=== PATIENT | female | born 1945 | race Two or more races ===

== ENCOUNTER 2022-09-29 15:42 | Inpatient (IN) | payer MEDICAID, SELFPAY ==
--- NOTE | ~2022-09-29 | CT_ITS ---
EXAMINATION: CT HEAD WITHOUT CONTRAST CLINICAL INFORMATION: Change in mental status. COMPARISON: No relevant prior imaging. TECHNIQUE: Contiguous axial imaging was performed from the skull base to vertex without intravenous administration of contrast. This CT examination was performed using dose optimization techniques as appropriate, variously including the following: *Automated exposure control *Adjustment of mA and/or kV according to patient size (this includes techniques or standardized protocols for targeted exams where dose is matched to indication/reason for exam; i.e. extremities or head) *Use of iterative reconstruction technique DLP: 730 mGy-cm FINDINGS: There is no acute intracranial hemorrhage or abnormal extra-axial collection. No intracranial mass effect or midline shift. Lateral and third ventricles are normal. No hydrocephalus. Scattered ill-defined foci of hypoattenuation are visualized within the periventricular white matter that most likely represent a chronic manifestation of small vessel ischemia. Ly-white matter differentiation is otherwise preserved and there is no evidence of acute territorial infarct. The calvarium and skull base are intact. Mastoid air cells and middle ear cavities are well aerated. Moderate paranasal sinus disease is partially included within the bmqlg-sb-pgoy of this examination. CT/CT head/brain wo IV con IMPRESSION: There are scattered chronic small vessel ischemic changes within the periventricular white matter. Otherwise unremarkable examination. No evidence of acute territorial infarct or hemorrhage.
--- NOTE | ~2022-09-29 | XR_ITS ---
EXAMINATION: XR CHEST CLINICAL INFORMATION: Shortness of breath COMPARISON: None available. TECHNIQUE: Frontal view of the chest was obtained. FINDINGS: The cardiac mediastinal silhouette is normal. There are bibasilar atelectasis, left greater than right. No pleural effusions or pneumothoraces. Normal pulmonary vascularity. XR/XR chest 1V IMPRESSION: Bibasilar atelectasis.
[2022-09-29 16:10] VITALS: BP 154/83; PULSE 75; RESP 18; TEMP 36.4; O2SAT 98
[2022-09-29 16:25] VITALS: BMI 21.8
[2022-09-29 16:35] LABS: Glucose, Whole Blood 124 mg/dL (60-115)
[2022-09-29 18:00] VITALS: BP 144/69; PULSE 74; RESP 18; TEMP 36.3; O2SAT 98
--- NOTE | 2022-09-29 18:45 | PC.ADMIT ---
Pt. arrived on unit from [facility] at 1555 via stretcher accompanied by 3 rate and cost analyst. Pt. recently brought by son from [facility] to live with his family in [place]. Pt. had made SI statements to son, resulting in her being brought to [facility]. In person rn neonatal icu utilized for admission process. Pt. admits she made statements that she wanted to to her son and waved a knife at herself, but no longer feels that way. She is A & O X 4, but admits her memory is severely impaired. She reports she has lost an unspecified amount of weight due to lack of appetite. Pt. oriented to unit and what to expect during stay. Signed KATERINE for son, and he will be called when rn neonatal icu is available. Pt. walks independently but uses furniture for balance. She reports problems with vertigo when she turns her head. Pt. given red fall risk wrist band, red non skid socks, and will be on 5 minute checks and have a bed alarm used. She has been provided a walker.
--- NOTE | 2022-09-29 19:52 | HO.PM.IMCN ---
History of Present Illness Data of Consult Service Date: 09/29/22 Requesting physician: Jazmyn Truong Primary Care Provider: Catherine Vega MD HPI Reason for consult: medical H&P 77-year-old female with history of hypertension, szr-[id number]-vylcpvyof type 2 diabetes, mixed bipolar disorder, and vertigo admitted to psychiatry from [facility] with consult placed to hospitalist service for medical H&P. Patient is Setswana-speaking only and was seen with the assistance of translator interpreter. She states that she has been quite depressed for several months with decreased appetite and has lost about 20 lb. She has also been experiencing positional vertigo for the last 2-3 weeks. She states when she changes positions or moves her head, she experiences room spinning dizziness and also has gait imbalance and has been ambulating with a walker for stability. She denies any associated nausea, vomiting, visual changes, hearing loss, tinnitus. She also reports chronic constipation last bowel movement was 5 days ago. No abdominal pain, melena, hematochezia. Review of Systems Review of Systems: General: No fevers, malaise, +weight loss HEENT: No blurred vision, diplopia. No sore throat, nasal congestion, rhinorrhea, sinus pain, ear pain Cardiovascular: No chest pain, palpitations, or leg edema Respiratory: No shortness of breath, wheezing, cough GI: No abdominal pain, nausea, vomiting, diarrhea, constipation, melena, hematochezia : No dysuria, hematuria, increased urinary frequency, decreased urinary output MSK: No myalgia, back pain Neuro: No headaches, weakness, paresthesias. +vertigo, +gait imbalance Psych: +depression, +decreased appetite Skin: No rashes or lesions [facility] Medical History (Updated 09/29/22 @ 19:58 by EARL Jiménez) Bipolar disorder Hypertension Non-insulin dependent type 2 diabetes mellitus Social History Household Members: Spouse, Family and Children Household Members Other:: , son, daughter in law, and grandson Housing: House Do you presently have visiting nurse or other home services: No Patient Tobacco Use Status: Never used Tobacco Use of substances other than those prescribed or required for medical reasons: No Currently Displaying Signs/Symptoms of Drug Intoxication Withdrawal: No Any prior treatment program specific to substance use: No Have you been hit, kicked, punched, or otherwise hurt by someone within the past year? If so, by whom?: No Do you feel safe in your current relationship?: Yes Is there a partner from a previous relationship who is making you feel unsafe now?: No Are you made to feel afraid or neglected: Yes ( Today afraid because I didn't know where I was going. ) Spiritual Healthcare Practices: No Buddhist Healthcare Practices: No Cultural Healthcare Practices: No Advance Directives: No Advance Directives Information Provided: No Do you have thoughts of harming others: None Do you have a plan to hurt others: No Plan Recently lost weight without trying: Yes How much weight loss: Unsure Eating poorly because of decreased appetite: Yes Nutrition screen score: 5 Nutrition Risks: Anorexia Patient : No : No Poor oral hygiene: No Meds Allergies Allergy/AdvReac Type Severity Reaction Status Date / Time No Known Allergies Allergy Verified 09/29/22 16:27 Active Medications: Current Medications Acetaminophen (Acetaminophen 325 Mg Tablet) 650 mg PO Q6H PRN PRN Reason: Headache/Pain Mild Scale (1-3) Al Hydroxide/Mg Hydroxide (Magnesium Hydrox/Alum Hydrox 30 Ml Oral.Susp) 30 ml PO Q6H PRN PRN Reason: Heartburn/Nausea Clonazepam (Clonazepam 0.5 Mg Tablet) 0.5 mg PO TID [facility] Clonidine HCl (Clonidine Hcl 0.1 Mg Tablet) 0.1 mg PO BID [facility]; Protocol Fluticasone Propionate (Fluticasone Propionate 100 Mcg Blst.W.Dev) 2 puff INHALE DAILY [facility] Lamotrigine (Lamotrigine 100 Mg Tablet) 100 mg PO BID [facility] Lisinopril (Lisinopril 20 Mg Tablet) 20 mg PO DAILY [facility]; Protocol Magnesium Hydroxide (Milk Of Magnesia 30 Ml Oral.Susp) 30 ml PO DAILY PRN PRN Reason: Constipation Meclizine HCl (Meclizine Hcl 12.5 Mg Tablet) 12.5 mg PO TID PRN PRN Reason: vertigo Multivitamins/Vitamin C (Multivitamin Tablet) 1 tab PO DAILY [facility] Olanzapine (Olanzapine 2.5 Mg Tablet) 2.5 mg PO BID PRN PRN Reason: agitation Risperidone (Risperidone 1 Mg Tablet) 1 mg PO TID [facility] Sertraline HCl (Sertraline Hcl 100 Mg Tablet) 100 mg PO DAILY [facility] Trazodone HCl (Trazodone Hcl 25 Mg Halftab) 25 mg PO BID PRN PRN Reason: sleep, agitation Physical Exam Vital Signs and Narrative: Vital Signs: Last Vital Signs Temp 97.5 F 09/29/22 16:10 Pulse 75 09/29/22 16:10 Resp 18 09/29/22 16:10 BP 154/83 H 09/29/22 16:10 Pulse Ox 98 09/29/22 16:10 O2 Del Method Room Air 09/29/22 16:10 BMI result Body Mass Index 21.8 Constitutional - Awake and Alert, No apparent distress Eyes - PERRLA, EOMI Cardiovascular - S1S2, RRR, No edema Respiratory - Normal lung expansion, Normal respiratory effort, No respiratory distress, CTA bilaterally Gastrointestinal - NT / ND; +BS; No rebound or guarding Extremities - no calf tenderness bilaterally, no swelling Musculoskeletal - Normal inspection, normal ROM Skin - Warm/Dry Neurological - Alert & oriented x3, horizontal nystagmus, otherwise CN II-XII in tact, 5/5 strength BUE and BLE, sensation in tact Results Labs Labs: Laboratory Results - last 24 hr 09/29/22 16:31 POC Glucose 124 H Assessment and Plan (1) Routine medical exam: Status: Acute (2) Vertigo: Status: Acute Plan 77-year-old female with history of hypertension, [id number]-hjqzvqecn type 2 diabetes, mixed bipolar disorder, and vertigo admitted to psychiatry from [facility] with consult placed to hospitalist service for medical H&P. #Bipolar disorder -plan per psychiatry #Vertigo -horizontal nystagmus noted on exam. Likely BPPV, but cannot exclude Risperdal or clonidine as contributing factors -Meclizine PRN -Consider PT eval given gait imbalance # uva-wlhwqvl-gdpfkwhfu type 2 diabetes -no hyperglycemia, recommend checking hemoglobin A1c -POC glucose -recommend diabetic diet -Humalog on sliding scale p.r.n. for hyperglycemia # hypertension -continue home meds -monitor BP Thank you for allowing me to participate in this consult. Signing off at this time. Please do not hesitate to call for further questions. Time Spent With Patient Time: Total time managing care of this patient today ____ minutes.
[2022-09-29] MEDS: Milk of Magnesia 30 ML ORAL.SUSP PO (21:27)
[2022-09-29] MEDS: traZODone HCL 25 MG HALFTAB PO (21:27)
[2022-09-29] MEDS: clonazePAM 0.5 MG TABLET PO (21:27)
[2022-09-29] MEDS: risperiDONE 1 MG TABLET PO (21:27)
[2022-09-29] MEDS: lamoTRIgine 100 MG TABLET PO (21:27)
[2022-09-30 08:00] VITALS: BP 166/94; PULSE 98; RESP 18; TEMP 36.5; O2SAT 97
[2022-09-30 08:00] LABS: Glucose, Whole Blood 136 mg/dL (60-115)
[2022-09-30 08:24] LABS: Estimated Average Glucose 128 mg/dL; Hemoglobin A1C 148.6715 umol/L; Hemoglobin A1c % 6.1 %
[2022-09-30 08:37] LABS: Cholesterol 300 mg/dL; HDL Cholesterol 67 mg/dL; LDL Cholesterol Calculated 213 mg/dl; Magnesium 2.4 mg/dL (1.6-2.6); Triglycerides 102 mg/dL
[2022-09-30] MEDS: lamoTRIgine 100 MG TABLET PO ×2 (08:42→20:29)
[2022-09-30] MEDS: cloNIDine HCL 0.1 MG TABLET PO ×2 (08:43→20:29)
[2022-09-30] MEDS: risperiDONE 1 MG TABLET PO ×3 (08:43→20:29)
[2022-09-30] MEDS: clonazePAM 0.5 MG TABLET PO ×3 (08:43→20:29)
[2022-09-30] MEDS: Multivitamin TABLET 1 TAB PO (08:44)
[2022-09-30] MEDS: Sertraline HCL 100 MG TABLET PO (08:44)
[2022-09-30] MEDS: lisinopriL 20 MG TABLET PO (08:44)
[2022-09-30 09:04] LABS: Folate 15.2 ng/mL (> or = 4.0); Free T4 (Free Thyroxine) 1.23 ng/dL (0.71-1.85); Thyroid Stimulating Hormone 1.53 uIU/mL (0.32-4.0); Vitamin B12 752 pg/mL (200-900)
[2022-09-30] MEDS: Fluticasone Propionate 100 MCG BLST.W.DEV 2 PUFF INHALE (10:10)
--- NOTE | 2022-09-30 11:34 | MHC.CLN ---
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 AND RECENTLY MOVED HERE HT 62 WT 119# IBW 110#+/-10% PT IS 108% IBW INDICATES ADEQUATE WT FOR HT; BMI 21 WNL LABS: A1C 6.1% (09/30/22) DIET RX: 2200DM-APPROPRIATE IF PT WITH POOR PO INTAKE X 3 DAYS; CAN GIVE ENSURE SUPPLEMENT TO INCREASE KCALS MONITOR PO INTAKE CLOSELY WEEKLY WEIGHTS
--- NOTE | 2022-09-30 15:55 | HO.PSYADMNOT ---
HPI Date of Service: 09/30/22 Chief Complaint: MDD recurrent, severe w/o psychotic behavior Sources of Information: patient interviewed, chart reviewed and crisis/core team assessment reviewed HPI Subjective Notes: Morillo Warning and Conditional Voluntary Narrative: The patient is a 77-year-old Pinedo certain female, , mother of an adult son, living with her and sons family in [facility], recently relocated from [facility] a few months ago. 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 He was rushed to the emergency room complaining of suicidal ideation with a plan but no intent. According to the chart the patient carries a diagnosis of bipolar disorder type 2 most recent episode depressed. According to the crisis assessment, the patient was rushed to the emergency room after a verbal altercation and she verbalized suicidal ideation with a plan to hurt herself with medications or running into traffic. He was assessed by crisis and since she reported depressed mood, anhedonia, lack of energy, feelings of hopelessness, feelings of worthlessness, poor sleep and poor appetite with suicidal ideation she was transferred to this facility for psychiatric stabilization. According to the crisis report she had a previous admission into the hospital for depression. On interview, the patient had very limited Israeli and she was interviewed in Cymro. She stated that she had been having depressive episodes since her early 50s, never admitted into the hospital in [facility] and she was recently relocated into the [facility] by her son. Since she has come, she reports exacerbation of depressed mood, anhedonia, lack of energy, feelings of hopelessness but she adamantly denies current suicidal ideation. She wants to go back to her home country. She stated that her son is working as an [employer]fd[employer] solution architect here and he is successful and busy. Also, she noticed that she had a decline on her memory, she cannot remember for the well long-term and short-term. She was able to contract for safety in the facility, she denies psychotic symptoms or prior episodes of farrah but according to the chart she was diagnosed with bipolar disorder. Past Psychiatric History: Her 1st psychiatric contact was at the age of 55 episodes of depression, she had been treated with psychotherapy medication management and the so Nusrat, never admitted over there were no episodes of suicidality, she had been admitted here [place] the [place]. Currently, the patient cannot remember what kind of medication she is taking. Medical Evaluation Reviewed: Yes [facility] Medical History Bipolar disorder Hypertension Non-insulin dependent type 2 diabetes mellitus Family History: Her mother had history of dementia. Social History: The patient was born and raised it invaded swell up, she is mother of 1 adult son. 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 She has good social support Substance History: Denies Trauma History: Denies Diagnostics Vital Signs (24Hr): Vital Signs - 24 hr 09/29/22 16:10 09/29/22 18:00 09/30/22 08:00 Temperature 97.5 F 97.4 F 97.7 F Pulse Rate 75 74 98 Respiratory Rate 18 18 18 Blood Pressure 154/83 H 144/69 H 166/94 H Pulse Oximetry 98 98 97 Oxygen Delivery Method Room Air Room Air BMI result Body Mass Index 21.8 Labs Labs: Laboratory Results - last 48 hr 09/29/22 09/30/22 09/30/22 16:31 07:43 07:54 POC Glucose 124 H 136 H Estimat Average Glucose 128 Hemoglobin A1c % 6.1 Magnesium Triglycerides Cholesterol LDL Cholesterol, Calc HDL Cholesterol Vitamin B12 Folate TSH Free T4 09/30/22 07:54 POC Glucose Estimat Average Glucose Hemoglobin A1c % Magnesium 2.4 Triglycerides 102 Cholesterol 300 LDL Cholesterol, Calc 213 HDL Cholesterol 67 Vitamin B12 752 Folate 15.2 TSH 1.53 Free T4 1.23 Meds/Allergies Meds Home Medications Medication Instructions Recorded Confirmed Type clonazepam 0.5 mg tablet 0.5 mg PO TID 09/30/22 09/30/22 History clonidine HCl 0.1 mg tablet 0.1 mg PO BID 09/30/22 09/30/22 History diphenhydramine HCl 50 mg capsule 50 mg PO BEDTIME PRN insomnia 09/30/22 09/30/22 History (Banophen) ferrous gluconate 324 mg (38 mg 324 mg PO DAILY 09/30/22 09/30/22 History iron) tablet lamotrigine 100 mg tablet 100 mg PO BID 09/30/22 09/30/22 History lamotrigine 100 mg tablet 100 mg PO BID 09/30/22 09/30/22 History multivitamin-iron 9 mg-folic acid 1 tab PO DAILY 09/30/22 09/30/22 History 400 mcg-calcium and minerals tablet (Therapeutic-M) risperidone 1 mg tablet 1 mg PO TID 09/30/22 09/30/22 History sertraline 50 mg tablet 50 mg PO DAILY 09/30/22 09/30/22 History Allergies Allergies Allergy/AdvReac Type Severity Reaction Status Date / Time No Known Allergies Allergy Verified 09/29/22 16:27 Mental Status Exam Mental Status Exam Patient Appearance: Appropriate Patient Orientation: Person and Situation Level of Consciousness: Awake and Appropriate Patient Behavior: Guarded and Passive Mood Description: Calm Affect Description: Constricted Patient Cognition Impaired: Yes Ability to Follow Directions: Good Speech Pattern: Clear Hallucinations: None Delusions: Not Present Thought Process: Distracted and Linear Thought Content: positive for [place] and positive for Circumstantial Judgement: Fair Assessment & Plan Assessment & Plan (1) Bipolar disorder: Status: Acute Code(s): F31.9 - Bipolar disorder, unspecified (2) Anorexia: Status: Acute Code(s): R63.0 - Anorexia (3) Vertigo: Status: Acute Code(s): R42 - Dizziness and giddiness (4) Routine medical exam: Status: Acute Code(s): Z00.00 - Encounter for general adult medical examination without abnormal findings Plan The patient is an elderly female, mostly Cymro-speaking with a past history of bipolar disorder who was admitted for exacerbation of depression with neurovegetative symptoms and suicidal ideation. The patient was recently relocated from [place] to the [facility] and she wants to go back home. Plan 1. Gather collateral information. We have permission to contact her son and gather more information. 2. Continue with medical treatment and suggestions for the hospitalist for treatment of diabetes and high blood pressure. 3. Continue with blood work and other medical treatment. 4. CT scan without contrast head. 5. Continue antidepressants. Patient educated on: diagnosis and therapeutic strategies Informed Consent: further education needed Reason for continued inpatient stay Substantial Risk for: harm to self, inability to function, rapid decompensation and med/psych decompensation Statement Statement: I have reviewed the history and physical and performed a pertinent examination on my patient. No changes have occurred unless specified. If the History and Physical was not performed prior to admission, the Hospitalist's service will be consulted for completing the admission physical. Time Spent With Patient Time: Total time managing care of this patient today ____ minutes.
[2022-09-30 16:35] LABS: Glucose, Whole Blood 104 mg/dL (60-115)
[2022-09-30 20:05] VITALS: BP 140/73; PULSE 92
[2022-09-30] MEDS: Sennosides 8.6 MG TABLET PO (20:29)
[2022-10-01 06:00] VITALS: BP 122/72; PULSE 15; RESP 15; TEMP 36.6; O2SAT 97
[2022-10-01 07:38] LABS: Glucose, Whole Blood 140 mg/dL (60-115)
[2022-10-01] MEDS: cloNIDine HCL 0.1 MG TABLET PO ×2 (09:28→20:25)
[2022-10-01] MEDS: Multivitamin TABLET 1 TAB PO (09:28)
[2022-10-01] MEDS: risperiDONE 1 MG TABLET PO ×3 (09:28→20:26)
[2022-10-01] MEDS: lisinopriL 20 MG TABLET PO (09:28)
[2022-10-01] MEDS: clonazePAM 0.5 MG TABLET PO ×3 (09:28→20:25)
[2022-10-01] MEDS: Sertraline HCL 100 MG TABLET PO (09:28)
[2022-10-01] MEDS: lamoTRIgine 100 MG TABLET PO ×2 (09:28→20:26)
[2022-10-01] MEDS: Fluticasone Propionate 100 MCG BLST.W.DEV 2 PUFF INHALE (09:35)
--- NOTE | 2022-10-01 11:50 | P.PNPSI_ITS ---
Subjective Subjective Date of Service: 10/01/22 Reason For Visit: MDD recurrent, severe w/o psychotic behavior Subjective Notes: Conditional Voluntary Interim History: The nursing staff reported the patient slept poorly last night and her appetite has been poor. She had been seen socializing with other peers. The certified social workers in health care tried to contact yesterday her son and he called back stating that he has time for a phone call at 02:30. We will try to call him back at that time today. The occupational therapist reported they were going to do an Juan Jose test. I will try to do a [place] in [place] today. On interview the patient reported diarrhea and poor appetite, she also reported feeling depressed, home-sick she wants to go back to [facility]. Mental Status Exam Mental Status Exam Patient Appearance: Well Grooomed and Appropriate Patient Orientation: Person and Situation Level of Consciousness: Awake and Appropriate Patient Behavior: Cooperative and Passive Mood Description: Withdrawn and Depressed Affect Description: Constricted Patient Cognition Impaired: Yes Ability to Follow Directions: Excellent Speech Pattern: Clear Memory Description: Intact Hallucinations: None Delusions: Not Present Thought Process: Distracted and Linear Thought Content: positive for [place] and positive for Circumstantial Judgement: Fair Diagnostics Vital Signs (24Hr): Vital Signs - 24 hr 09/30/22 20:05 10/01/22 06:00 Temperature 97.8 F Pulse Rate 92 15 L Respiratory Rate 15 Blood Pressure 140/73 H 122/72 Pulse Oximetry 97 Oxygen Delivery Method Room Air BMI result Body Mass Index 21.8 Labs Labs: Laboratory Results - last 48 hr 09/29/22 09/30/22 09/30/22 16:31 07:43 07:54 POC Glucose 124 H 136 H Estimat Average Glucose 128 Hemoglobin A1c % 6.1 Magnesium Triglycerides Cholesterol LDL Cholesterol, Calc HDL Cholesterol Vitamin B12 Folate TSH Free T4 09/30/22 09/30/22 10/01/22 07:54 16:30 07:34 POC Glucose 104 140 H Estimat Average Glucose Hemoglobin A1c % Magnesium 2.4 Triglycerides 102 Cholesterol 300 LDL Cholesterol, Calc 213 HDL Cholesterol 67 Vitamin B12 752 Folate 15.2 TSH 1.53 Free T4 1.23 Medications Medications Current Medications Acetaminophen (Acetaminophen 325 Mg Tablet) 650 mg PO Q6H PRN PRN Reason: Headache/Pain Mild Scale (1-3) Al Hydroxide/Mg Hydroxide (Magnesium Hydrox/Alum Hydrox 30 Ml Oral.Susp) 30 ml PO Q6H PRN PRN Reason: Heartburn/Nausea Clonazepam (Clonazepam 0.5 Mg Tablet) 0.5 mg PO TID [facility] Last Admin: 10/01/22 09:28 Dose: 0.5 mg Clonidine HCl (Clonidine Hcl 0.1 Mg Tablet) 0.1 mg PO BID [facility]; Protocol Last Admin: 10/01/22 09:28 Dose: 0.1 mg Fluticasone Propionate (Fluticasone Propionate 100 Mcg Blst.W.Dev) 2 puff INHALE DAILY [facility] Last Admin: 10/01/22 09:35 Dose: 2 puff Lamotrigine (Lamotrigine 100 Mg Tablet) 100 mg PO BID [facility] Last Admin: 10/01/22 09:28 Dose: 100 mg Lisinopril (Lisinopril 20 Mg Tablet) 20 mg PO DAILY [facility]; Protocol Last Admin: 10/01/22 09:28 Dose: 20 mg Magnesium Hydroxide (Milk Of Magnesia 30 Ml Oral.Susp) 30 ml PO DAILY PRN PRN Reason: Constipation Last Admin: 09/29/22 21:27 Dose: 30 ml Meclizine HCl (Meclizine Hcl 12.5 Mg Tablet) 12.5 mg PO TID PRN PRN Reason: vertigo Mirtazapine (Mirtazapine 7.5 Mg Tablet) 7.5 mg PO BEDTIME [facility] Multivitamins/Vitamin C (Multivitamin Tablet) 1 tab PO DAILY [facility] Last Admin: 10/01/22 09:28 Dose: 1 tab Olanzapine (Olanzapine 2.5 Mg Tablet) 2.5 mg PO BID PRN PRN Reason: agitation Risperidone (Risperidone 1 Mg Tablet) 1 mg PO TID [facility] Last Admin: 10/01/22 09:28 Dose: 1 mg Senna (Sennosides 8.6 Mg Tablet) 8.6 mg PO BEDTIME [facility] Last Admin: 09/30/22 20:29 Dose: 8.6 mg Sertraline HCl (Sertraline Hcl 100 Mg Tablet) 100 mg PO DAILY [facility] Last Admin: 10/01/22 09:28 Dose: 100 mg Trazodone HCl (Trazodone Hcl 25 Mg Halftab) 25 mg PO BID PRN PRN Reason: sleep, agitation Last Admin: 09/29/22 21:27 Dose: 25 mg Allergies Allergies Allergy/AdvReac Type Severity Reaction Status Date / Time No Known Allergies Allergy Verified 09/29/22 16:27 Assessment & Plan Assessment & Plan (1) Bipolar disorder: Status: Acute Code(s): F31.9 - Bipolar disorder, unspecified (2) Anorexia: Status: Acute Code(s): R63.0 - Anorexia (3) Vertigo: Status: Acute Code(s): R42 - Dizziness and giddiness (4) Routine medical exam: Status: Acute Code(s): Z00.00 - Encounter for general adult medical examination without abnormal findings Plan The patient is an elderly female, mostly [place] Islander-speaking with a past history of bipolar disorder who was admitted for exacerbation of depression with neurovegetative symptoms and suicidal ideation. The patient was recently relocated from [place] to the [facility] and she wants to go back home. Plan 1. Gather collateral information. We have permission to contact her son and gather more information. 2. Continue with medical treatment and suggestions for the hospitalist for treatment of diabetes and high blood pressure. 3. Continue with blood work and other medical treatment. 4. CT scan without contrast head. 5. Continue antidepressants. Reason for contiued inpatient stay Substantial Risk for: inability to function, rapid decompensation and med/psych decompensation Time Spent With Patient Time: Total time managing care of this patient today __20__ minutes.
[2022-10-01] MEDS: Loperamide HCl 2 MG CAPSULE 4 MG PO (13:08)
--- NOTE | 2022-10-01 13:15 | PC.NURSE ---
Patient complained of diarrhea which has been continuous throughout the day, Immodium was ordered and given. Pt complained of left flank pain, will continue to monitor.
[2022-10-01 18:00] VITALS: BP 137/70; PULSE 90; RESP 16; TEMP 36.6; O2SAT 96
[2022-10-01] MEDS: Sennosides 8.6 MG TABLET PO (20:26)
[2022-10-02 06:00] VITALS: BP 134/72; PULSE 77; RESP 18; TEMP 36.1; O2SAT 96
[2022-10-02 07:00] VITALS: BMI 21.7
--- NOTE | 2022-10-02 08:27 | HO.PSYCHPN ---
Subjective Subjective Date of Service: 10/02/22 Reason For Visit: MDD recurrent, severe w/o psychotic behavior Subjective Notes: Conditional Voluntary Interim History: The nursing staff reported the patient had been mostly isolated, fully compliant with treatment but she refused her Remeron last night since she is having diarrhea.. The staff has noticed that the patient's feels safe in the facility on she denies suicidal ideation at this moment but still she is very dysphoric. On interview the patient remains depressed, she reported oversedation with Remeron. We discussed options and she agreed to try Elavil at . The social services reported we tried to contact her son but we could not. We will try again today Mental Status Exam Mental Status Exam Patient Appearance: Well Grooomed and Appropriate Patient Orientation: Person and Situation Level of Consciousness: Awake and Appropriate Patient Behavior: Guarded and Passive Mood Description: Withdrawn and Depressed Affect Description: Constricted Patient Cognition Impaired: Yes Ability to Follow Directions: Good Speech Pattern: Clear Hallucinations: None Delusions: Not Present Thought Process: Distracted and Linear Thought Content: positive for Circumstantial Judgement: Fair Diagnostics Vital Signs (24Hr): Vital Signs - 24 hr 10/01/22 18:00 Temperature 97.9 F Pulse Rate 90 Respiratory Rate 16 Blood Pressure 137/70 Pulse Oximetry 96 Oxygen Delivery Method Room Air BMI result Body Mass Index 21.8 Labs Labs: Laboratory Results - last 48 hr 09/30/22 09/30/22 10/01/22 07:54 16:30 07:34 POC Glucose 104 140 H Magnesium 2.4 Triglycerides 102 Cholesterol 300 LDL Cholesterol, Calc 213 HDL Cholesterol 67 Vitamin B12 752 Folate 15.2 TSH 1.53 Free T4 1.23 Imaging Radiology Impressions: ITS Impressions Head CT 10/01/22 09:58 IMPRESSION: There are scattered chronic small vessel ischemic changes within the periventricular white matter. Otherwise unremarkable examination. No evidence of acute territorial infarct or hemorrhage. Medications Medications Current Medications Acetaminophen (Acetaminophen 325 Mg Tablet) 650 mg PO Q6H PRN PRN Reason: Headache/Pain Mild Scale (1-3) Al Hydroxide/Mg Hydroxide (Magnesium Hydrox/Alum Hydrox 30 Ml Oral.Susp) 30 ml PO Q6H PRN PRN Reason: Heartburn/Nausea Clonazepam (Clonazepam 0.5 Mg Tablet) 0.5 mg PO TID [facility] Last Admin: 10/01/22 20:25 Dose: 0.5 mg Clonidine HCl (Clonidine Hcl 0.1 Mg Tablet) 0.1 mg PO BID [facility]; Protocol Last Admin: 10/01/22 20:25 Dose: 0.1 mg Fluticasone Propionate (Fluticasone Propionate 100 Mcg Blst.W.Dev) 2 puff INHALE DAILY [facility] Last Admin: 10/01/22 09:35 Dose: 2 puff Lamotrigine (Lamotrigine 100 Mg Tablet) 100 mg PO BID [facility] Last Admin: 10/01/22 20:26 Dose: 100 mg Lisinopril (Lisinopril 20 Mg Tablet) 20 mg PO DAILY [facility]; Protocol Last Admin: 10/01/22 09:28 Dose: 20 mg Loperamide HCl (Loperamide Hcl 2 Mg Capsule) 4 mg PO Q4H PRN PRN Reason: Diarrhea Last Admin: 10/01/22 13:08 Dose: 4 mg Magnesium Hydroxide (Milk Of Magnesia 30 Ml Oral.Susp) 30 ml PO DAILY PRN PRN Reason: Constipation Last Admin: 09/29/22 21:27 Dose: 30 ml Meclizine HCl (Meclizine Hcl 12.5 Mg Tablet) 12.5 mg PO TID PRN PRN Reason: vertigo Mirtazapine (Mirtazapine 7.5 Mg Tablet) 7.5 mg PO BEDTIME [facility] Last Admin: 10/01/22 20:26 Dose: Not Given Multivitamins/Vitamin C (Multivitamin Tablet) 1 tab PO DAILY [facility] Last Admin: 10/01/22 09:28 Dose: 1 tab Olanzapine (Olanzapine 2.5 Mg Tablet) 2.5 mg PO BID PRN PRN Reason: agitation Risperidone (Risperidone 1 Mg Tablet) 1 mg PO TID [facility] Last Admin: 10/01/22 20:26 Dose: 1 mg Senna (Sennosides 8.6 Mg Tablet) 8.6 mg PO BEDTIME [facility] Last Admin: 10/01/22 20:26 Dose: 8.6 mg Sertraline HCl (Sertraline Hcl 100 Mg Tablet) 100 mg PO DAILY [facility] Last Admin: 10/01/22 09:28 Dose: 100 mg Trazodone HCl (Trazodone Hcl 25 Mg Halftab) 25 mg PO BID PRN PRN Reason: sleep, agitation Last Admin: 09/29/22 21:27 Dose: 25 mg Allergies Allergies Allergy/AdvReac Type Severity Reaction Status Date / Time No Known Allergies Allergy Verified 09/29/22 16:27 Assessment & Plan Assessment & Plan (1) Bipolar disorder: Status: Acute Code(s): F31.9 - Bipolar disorder, unspecified (2) Anorexia: Status: Acute Code(s): R63.0 - Anorexia (3) Vertigo: Status: Acute Code(s): R42 - Dizziness and giddiness (4) Routine medical exam: Status: Acute Code(s): Z00.00 - Encounter for general adult medical examination without abnormal findings Plan The patient is an elderly female, mostly Georgian-speaking with a past history of bipolar disorder who was admitted for exacerbation of depression with neurovegetative symptoms and suicidal ideation. The patient was recently relocated from [place] to the [facility] and she wants to go back home. Plan 1. Gather collateral information. We have permission to contact her son and gather more information. 2. Continue with medical treatment and suggestions for the hospitalist for treatment of diabetes and high blood pressure. 3. Continue with blood work and other medical treatment. 4. CT scan without contrast head. 5. D/C Remeron. 6. Start Elavil 12.5 mg po qhs Reason for contiued inpatient stay Substantial Risk for: inability to function, rapid decompensation and med/psych decompensation Time Spent With Patient Time: Total time managing care of this patient today _20___ minutes.
[2022-10-02] MEDS: Multivitamin TABLET 1 TAB PO (08:43)
[2022-10-02] MEDS: Sertraline HCL 100 MG TABLET PO (08:43)
[2022-10-02] MEDS: risperiDONE 1 MG TABLET PO ×3 (08:44→20:09)
[2022-10-02] MEDS: lisinopriL 20 MG TABLET PO (08:44)
[2022-10-02] MEDS: clonazePAM 0.5 MG TABLET PO ×3 (08:44→20:09)
[2022-10-02] MEDS: lamoTRIgine 100 MG TABLET PO ×2 (08:45→20:09)
[2022-10-02] MEDS: cloNIDine HCL 0.1 MG TABLET PO ×2 (08:45→20:08)
[2022-10-02] MEDS: Fluticasone Propionate 100 MCG BLST.W.DEV 2 PUFF INHALE (08:48)
[2022-10-02 16:09] VITALS: BP 122/72; PULSE 84; RESP 18; O2SAT 98
[2022-10-02 18:00] VITALS: BP 134/64; PULSE 80; RESP 16; TEMP 36.6; O2SAT 98
[2022-10-02] MEDS: Amitriptyline HCl 25 MG TABLET 12.5 MG PO (20:08)
[2022-10-02] MEDS: Sennosides 8.6 MG TABLET PO (20:09)
[2022-10-02] MEDS: traZODone HCL 25 MG HALFTAB PO (20:09)
[2022-10-03] MEDS: Acetaminophen 325 MG TABLET 650 MG PO ×2 (05:29→16:31)
[2022-10-03 06:00] VITALS: BP 142/68; PULSE 95; RESP 15; TEMP 36.1; O2SAT 97
[2022-10-03] MEDS: Sertraline HCL 50 MG TABLET 150 MG PO (08:07)
[2022-10-03] MEDS: lisinopriL 20 MG TABLET PO (08:07)
[2022-10-03] MEDS: Multivitamin TABLET 1 TAB PO (08:08)
[2022-10-03] MEDS: risperiDONE 1 MG TABLET PO ×3 (08:08→19:59)
[2022-10-03] MEDS: clonazePAM 0.5 MG TABLET PO ×2 (08:08→19:58)
[2022-10-03] MEDS: lamoTRIgine 100 MG TABLET PO ×2 (08:08→19:58)
[2022-10-03] MEDS: cloNIDine HCL 0.1 MG TABLET PO ×2 (08:08→19:58)
[2022-10-03] MEDS: Fluticasone Propionate 100 MCG BLST.W.DEV 2 PUFF INHALE (08:33)
[2022-10-03 11:50] VITALS: BP 93/57; PULSE 78; RESP 18
--- NOTE | 2022-10-03 13:42 | HO.PSYCHPN ---
Subjective Subjective Date of Service: 10/03/22 Reason For Visit: MDD recurrent, severe w/o psychotic behavior Subjective Notes: Conditional Voluntary Interim History: The nursing staff reported the patient spent most of the time in her room, she has been isolative and compliant with medications. Unfortunately she slept only 4 hours overnight. Yesterday we gather collateral information by her son reported a long history of depression Alison Deutsch, that she becomes very dysfunctional with poor ADL less when she decompensates that she was already admitted into the hospital in [place] in June this year and she was discharged fairly well. She decompensated after a few weeks after. Yesterday we discontinue Remeron since she was over-sedated but today in the morning she stated that Elavil make her a little EDC. Later on, she had an a unwitnessed fall but with no major sequela. I decided to put her on one-to-one for safety. On interview the patient reports dysphoria, she agreed to increase Zoloft up to 150 mg p.o. q.h.s. and discontinue Elavil. Mental Status Exam Mental Status Exam Patient Appearance: Appropriate Patient Orientation: Person and Situation Level of Consciousness: Awake and Appropriate Patient Behavior: Guarded and Passive Mood Description: Withdrawn Affect Description: Constricted Patient Cognition Impaired: Yes Ability to Follow Directions: Good Speech Pattern: Clear Hallucinations: None Delusions: Not Present Thought Process: Slowed Thinking Thought Content: positive for [place] and positive for Circumstantial Depressive Symptoms: Increased Anxiety, Insomnia and Increased Irritability Judgement: Poor Diagnostics Vital Signs (24Hr): Vital Signs - 24 hr 10/02/22 16:09 10/02/22 18:00 10/03/22 06:00 Temperature 97.8 F 96.9 F Pulse Rate 84 80 95 Respiratory Rate 18 16 15 Blood Pressure 122/72 134/64 142/68 H Pulse Oximetry 98 98 97 Oxygen Delivery Method Room Air Room Air Room Air 10/03/22 11:50 Temperature Pulse Rate 78 Respiratory Rate 18 Blood Pressure 93/57 L Pulse Oximetry Oxygen Delivery Method BMI result Body Mass Index 21.7 Imaging Radiology Impressions: ITS Impressions Head CT 10/01/22 09:58 IMPRESSION: There are scattered chronic small vessel ischemic changes within the periventricular white matter. Otherwise unremarkable examination. No evidence of acute territorial infarct or hemorrhage. Medications Medications Current Medications Acetaminophen (Acetaminophen 325 Mg Tablet) 650 mg PO Q6H PRN PRN Reason: Headache/Pain Mild Scale (1-3) Last Admin: 10/03/22 05:29 Dose: 650 mg Al Hydroxide/Mg Hydroxide (Magnesium Hydrox/Alum Hydrox 30 Ml Oral.Susp) 30 ml PO Q6H PRN PRN Reason: Heartburn/Nausea Amitriptyline HCl (Amitriptyline Hcl 25 Mg Tablet) 12.5 mg PO BEDTIME [facility] Last Admin: 10/02/22 20:08 Dose: 12.5 mg Clonazepam (Clonazepam 0.5 Mg Tablet) 0.5 mg PO TID [facility] Last Admin: 10/03/22 08:08 Dose: 0.5 mg Clonidine HCl (Clonidine Hcl 0.1 Mg Tablet) 0.1 mg PO BID [facility]; Protocol Last Admin: 10/03/22 08:08 Dose: 0.1 mg Fluticasone Propionate (Fluticasone Propionate 100 Mcg Blst.W.Dev) 2 puff INHALE DAILY [facility] Last Admin: 10/03/22 08:33 Dose: 2 puff Lamotrigine (Lamotrigine 100 Mg Tablet) 100 mg PO BID [facility] Last Admin: 10/03/22 08:08 Dose: 100 mg Lisinopril (Lisinopril 20 Mg Tablet) 20 mg PO DAILY [facility]; Protocol Last Admin: 10/03/22 08:07 Dose: 20 mg Loperamide HCl (Loperamide Hcl 2 Mg Capsule) 4 mg PO Q4H PRN PRN Reason: Diarrhea Last Admin: 10/01/22 13:08 Dose: 4 mg Magnesium Hydroxide (Milk Of Magnesia 30 Ml Oral.Susp) 30 ml PO DAILY PRN PRN Reason: Constipation Last Admin: 09/29/22 21:27 Dose: 30 ml Meclizine HCl (Meclizine Hcl 12.5 Mg Tablet) 12.5 mg PO TID PRN PRN Reason: vertigo Multivitamins/Vitamin C (Multivitamin Tablet) 1 tab PO DAILY [facility] Last Admin: 10/03/22 08:08 Dose: 1 tab Olanzapine (Olanzapine 2.5 Mg Tablet) 2.5 mg PO BID PRN PRN Reason: agitation Risperidone (Risperidone 1 Mg Tablet) 1 mg PO TID [facility] Last Admin: 10/03/22 08:08 Dose: 1 mg Senna (Sennosides 8.6 Mg Tablet) 8.6 mg PO BEDTIME [facility] Last Admin: 10/02/22 20:09 Dose: 8.6 mg Sertraline HCl (Sertraline Hcl 50 Mg Tablet) 150 mg PO DAILY [facility] Last Admin: 10/03/22 08:07 Dose: 150 mg Trazodone HCl (Trazodone Hcl 25 Mg Halftab) 25 mg PO BID PRN PRN Reason: sleep, agitation Last Admin: 10/02/22 20:09 Dose: 25 mg Allergies Allergies Allergy/AdvReac Type Severity Reaction Status Date / Time No Known Allergies Allergy Verified 09/29/22 16:27 Assessment & Plan Assessment & Plan (1) Bipolar disorder: Status: Acute Code(s): F31.9 - Bipolar disorder, unspecified (2) Anorexia: Status: Acute Code(s): R63.0 - Anorexia (3) Vertigo: Status: Acute Code(s): R42 - Dizziness and giddiness (4) Routine medical exam: Status: Acute Code(s): Z00.00 - Encounter for general adult medical examination without abnormal findings Plan The patient is an elderly female, mostly Chinese-speaking with a past history of bipolar disorder who was admitted for exacerbation of depression with neurovegetative symptoms and suicidal ideation. The patient was recently relocated from [place] to the [facility] and she wants to go back home. Plan 1. Gather collateral information. We have permission to contact her son and gather more information. 2. Continue with medical treatment and suggestions for the hospitalist for treatment of diabetes and high blood pressure. 3. Continue with blood work and other medical treatment. 4. CT scan without contrast head. The CT scan came back weight general mild ischemic changes 5. D/C Remeron. 6. Start Elavil 12.5 mg po qhs 7. Zoloft increased today up to 150 mg p.o. q.h.s. Reason for contiued inpatient stay Substantial Risk for: harm to self, inability to function, rapid decompensation and med/psych decompensation Time Spent With Patient Time: Total time managing care of this patient today __20__ minutes.
[2022-10-03 19:10] VITALS: BP 136/77; PULSE 65; RESP 18; TEMP 36.2; O2SAT 97
[2022-10-03] MEDS: Amitriptyline HCl 25 MG TABLET 12.5 MG PO (19:58)
[2022-10-03] MEDS: Sennosides 8.6 MG TABLET PO (19:59)
[2022-10-04 08:34] VITALS: BP 142/69; PULSE 71; RESP 16; TEMP 36.3; O2SAT 96
[2022-10-04] MEDS: Multivitamin TABLET 1 TAB PO (08:57)
[2022-10-04] MEDS: clonazePAM 0.5 MG TABLET PO ×3 (08:57→20:38)
[2022-10-04] MEDS: Sertraline HCL 50 MG TABLET 150 MG PO (08:57)
[2022-10-04] MEDS: risperiDONE 1 MG TABLET PO ×3 (08:57→20:39)
[2022-10-04] MEDS: cloNIDine HCL 0.1 MG TABLET PO ×2 (08:57→20:38)
[2022-10-04] MEDS: lamoTRIgine 100 MG TABLET PO ×2 (08:57→20:39)
[2022-10-04] MEDS: Acetaminophen 325 MG TABLET 650 MG PO (09:22)
[2022-10-04] MEDS: lisinopriL 20 MG TABLET PO (09:31)
[2022-10-04 18:00] VITALS: BP 126/60; PULSE 71; RESP 17; TEMP 36.4; O2SAT 95
[2022-10-04] MEDS: Amitriptyline HCl 25 MG TABLET 12.5 MG PO (20:35)
[2022-10-04] MEDS: Sennosides 8.6 MG TABLET PO (20:38)
--- NOTE | 2022-10-04 22:11 | P.PNPSI_ITS ---
Subjective Subjective Date of Service: 10/04/22 Reason For Visit: MDD recurrent, severe w/o psychotic behavior Interim History: Met with pt and d/w nursing. Interviewed with growth hacker #[id number]. Repored feeliong dizzy yesteday (fell) and shaking and hip pain (chronic). Elavil and remeron Stopped/held. Feels safe. Medication Compliance: Yes Side effects from medications: Yes (holding/stopped meds yesterday to minimize falls risk) Attending Groups: No Review of Systems Acute medical concerns: No Review of Systems Review of Systems no acute changes Mental Status Exam Mental Status Exam Patient Appearance: Appropriate Patient Orientation: Person and Situation Level of Consciousness: Awake and Appropriate Patient Behavior: Guarded and Passive Mood Description: Withdrawn Affect Description: Constricted Patient Cognition Impaired: Yes Ability to Follow Directions: Good Speech Pattern: Clear Hallucinations: None Delusions: Not Present Thought Process: Slowed Thinking Thought Content: positive for [place] and positive for Circumstantial Depressive Symptoms: Increased Anxiety, Insomnia and Increased Irritability Judgement: Poor Diagnostics Vital Signs (24Hr): Vital Signs - 24 hr 10/04/22 08:34 10/04/22 18:00 Temperature 97.3 F 97.6 F Pulse Rate 71 71 Respiratory Rate 16 17 Blood Pressure 142/69 H 126/60 Pulse Oximetry 96 95 Oxygen Delivery Method Room Air Room Air BMI result Body Mass Index 21.7 Imaging Radiology Impressions: ITS Impressions Head CT 10/01/22 09:58 IMPRESSION: There are scattered chronic small vessel ischemic changes within the periventricular white matter. Otherwise unremarkable examination. No evidence of acute territorial infarct or hemorrhage. Medications Medications Current Medications Acetaminophen (Acetaminophen 325 Mg Tablet) 650 mg PO Q6H PRN PRN Reason: Headache/Pain Mild Scale (1-3) Last Admin: 10/04/22 09:22 Dose: 650 mg Al Hydroxide/Mg Hydroxide (Magnesium Hydrox/Alum Hydrox 30 Ml Oral.Susp) 30 ml PO Q6H PRN PRN Reason: Heartburn/Nausea Amitriptyline HCl (Amitriptyline Hcl 25 Mg Tablet) 12.5 mg PO BEDTIME [facility] Last Admin: 10/04/22 20:35 Dose: 12.5 mg Clonazepam (Clonazepam 0.5 Mg Tablet) 0.5 mg PO TID [facility] Last Admin: 10/04/22 20:38 Dose: 0.5 mg Clonidine HCl (Clonidine Hcl 0.1 Mg Tablet) 0.1 mg PO BID [facility]; Protocol Last Admin: 10/04/22 20:38 Dose: 0.1 mg Fluticasone Propionate (Fluticasone Propionate 100 Mcg Blst.W.Dev) 2 puff INHALE DAILY [facility] Last Admin: 10/04/22 09:32 Dose: Not Given Lamotrigine (Lamotrigine 100 Mg Tablet) 100 mg PO BID [facility] Last Admin: 10/04/22 20:39 Dose: 100 mg Lisinopril (Lisinopril 20 Mg Tablet) 20 mg PO DAILY [facility]; Protocol Last Admin: 10/04/22 09:31 Dose: 20 mg Loperamide HCl (Loperamide Hcl 2 Mg Capsule) 4 mg PO Q4H PRN PRN Reason: Diarrhea Last Admin: 10/01/22 13:08 Dose: 4 mg Magnesium Hydroxide (Milk Of Magnesia 30 Ml Oral.Susp) 30 ml PO DAILY PRN PRN Reason: Constipation Last Admin: 09/29/22 21:27 Dose: 30 ml Meclizine HCl (Meclizine Hcl 12.5 Mg Tablet) 12.5 mg PO TID PRN PRN Reason: vertigo Multivitamins/Vitamin C (Multivitamin Tablet) 1 tab PO DAILY [facility] Last Admin: 10/04/22 08:57 Dose: 1 tab Olanzapine (Olanzapine 2.5 Mg Tablet) 2.5 mg PO BID PRN PRN Reason: agitation Risperidone (Risperidone 1 Mg Tablet) 1 mg PO TID [facility] Last Admin: 10/04/22 20:39 Dose: 1 mg Senna (Sennosides 8.6 Mg Tablet) 8.6 mg PO BEDTIME [facility] Last Admin: 10/04/22 20:38 Dose: 8.6 mg Sertraline HCl (Sertraline Hcl 50 Mg Tablet) 150 mg PO DAILY [facility] Last Admin: 10/04/22 08:57 Dose: 150 mg Trazodone HCl (Trazodone Hcl 25 Mg Halftab) 25 mg PO BID PRN PRN Reason: sleep, agitation Last Admin: 10/02/22 20:09 Dose: 25 mg Allergies Allergies Allergy/AdvReac Type Severity Reaction Status Date / Time No Known Allergies Allergy Verified 09/29/22 16:27 Assessment & Plan Assessment & Plan (1) Bipolar disorder: Status: Acute Code(s): F31.9 - Bipolar disorder, unspecified (2) Anorexia: Status: Acute Code(s): R63.0 - Anorexia (3) Vertigo: Status: Acute Code(s): R42 - Dizziness and giddiness (4) Routine medical exam: Status: Acute Code(s): Z00.00 - Encounter for general adult medical examination without abnormal findings Plan The patient is an elderly female, mostly Cameroonian-speaking with a past history of bipolar disorder who was admitted for exacerbation of depression with neurovegetative symptoms and suicidal ideation. The patient was recently relocated from [place] to the [facility] and she wants to go back home. Plan 1. Gather collateral information. We have permission to contact her son and gather more information. 2. Continue with medical treatment and suggestions for the hospitalist for treatment of diabetes and high blood pressure. 3. Continue with blood work and other medical treatment. 4. CT scan without contrast head. The CT scan came back weight general mild ischemic changes 5. D/C Remeron. 6. Start Elavil 12.5 mg po qhs 7. Zoloft increased today up to 150 mg p.o. q.h.s. 10/04: no changes- remeron and elavil stopped yesterday to minimize falls risk Reason for contiued inpatient stay Substantial Risk for: inability to function and rapid decompensation Time Spent With Patient Time: Total time managing care of this patient today ____ minutes.
[2022-10-05 08:00] VITALS: BP 131/75; PULSE 100; RESP 18; TEMP 36.7; O2SAT 97
[2022-10-05] MEDS: cloNIDine HCL 0.1 MG TABLET PO ×2 (08:54→20:38)
[2022-10-05] MEDS: Multivitamin TABLET 1 TAB PO (08:55)
[2022-10-05] MEDS: lamoTRIgine 100 MG TABLET PO ×2 (08:55→20:38)
[2022-10-05] MEDS: risperiDONE 1 MG TABLET PO ×3 (08:55→20:38)
[2022-10-05] MEDS: clonazePAM 0.5 MG TABLET PO ×3 (08:56→20:38)
[2022-10-05] MEDS: Sertraline HCL 50 MG TABLET 150 MG PO (08:56)
[2022-10-05] MEDS: lisinopriL 20 MG TABLET PO (08:56)
[2022-10-05] MEDS: Fluticasone Propionate 100 MCG BLST.W.DEV 2 PUFF INHALE (08:57)
[2022-10-05] MEDS: Acetaminophen 325 MG TABLET 650 MG PO ×2 (09:30→20:55)
[2022-10-05] MEDS: Magnesium Hydrox/Alum Hydrox 30 ML ORAL.SUSP PO (11:04)
--- NOTE | 2022-10-05 13:27 | HO.PSYCHPN ---
Subjective Subjective Date of Service: 10/05/22 Reason For Visit: MDD recurrent, severe w/o psychotic behavior Interim History: Met with pt and d/w nursing. Interviewed with kosovan speaking staff as per patinet preference. No dizziness today. Leg tremor (left) and feeling tired and short of breath at times. Reports this has happened before. Reluctant around imaging and blood work (+/- hospitalist review) but agreed to same. Otherwise anxious, depressed. No SI or HI. Feels safe. Medication Compliance: Yes Side effects from medications: No Attending Groups: Intermittent Review of Systems Leg tremor (left) and feeling tired and short of breath at times. Reports this has happened before. Reluctant around imaging and blood work (+/- hospitalist review) but agreed to same Review of Systems Review of Systems Leg tremor (left) and feeling tired and short of breath at times. Reports this has happened before. Reluctant around imaging and blood work (+/- hospitalist review) but agreed to same Mental Status Exam Mental Status Exam Patient Appearance: Appropriate Patient Orientation: Person and Situation Level of Consciousness: Awake and Appropriate Patient Behavior: Passive Mood Description: Withdrawn Affect Description: Constricted Patient Cognition Impaired: Yes Ability to Follow Directions: Good Speech Pattern: Clear Memory Description: Intact Diagnostics Vital Signs (24Hr): Vital Signs - 24 hr 10/04/22 18:00 10/05/22 08:00 Temperature 97.6 F 98.0 F Pulse Rate 71 100 Respiratory Rate 17 18 Blood Pressure 126/60 131/75 Pulse Oximetry 95 97 Oxygen Delivery Method Room Air Room Air BMI result Body Mass Index 21.7 Imaging Radiology Impressions: ITS Impressions Head CT 10/01/22 09:58 IMPRESSION: There are scattered chronic small vessel ischemic changes within the periventricular white matter. Otherwise unremarkable examination. No evidence of acute territorial infarct or hemorrhage. Medications Medications Current Medications Acetaminophen (Acetaminophen 325 Mg Tablet) 650 mg PO Q6H PRN PRN Reason: Headache/Pain Mild Scale (1-3) Last Admin: 10/05/22 09:30 Dose: 650 mg Al Hydroxide/Mg Hydroxide (Magnesium Hydrox/Alum Hydrox 30 Ml Oral.Susp) 30 ml PO Q6H PRN PRN Reason: Heartburn/Nausea Last Admin: 10/05/22 11:04 Dose: 30 ml Amitriptyline HCl (Amitriptyline Hcl 25 Mg Tablet) 12.5 mg PO BEDTIME [facility] Last Admin: 10/04/22 20:35 Dose: 12.5 mg Clonazepam (Clonazepam 0.5 Mg Tablet) 0.5 mg PO TID [facility] Last Admin: 10/05/22 08:56 Dose: 0.5 mg Clonidine HCl (Clonidine Hcl 0.1 Mg Tablet) 0.1 mg PO BID [facility]; Protocol Last Admin: 10/05/22 08:54 Dose: 0.1 mg Fluticasone Propionate (Fluticasone Propionate 100 Mcg Blst.W.Dev) 2 puff INHALE DAILY [facility] Last Admin: 10/05/22 08:57 Dose: 2 puff Lamotrigine (Lamotrigine 100 Mg Tablet) 100 mg PO BID [facility] Last Admin: 10/05/22 08:55 Dose: 100 mg Lisinopril (Lisinopril 20 Mg Tablet) 20 mg PO DAILY [facility]; Protocol Last Admin: 10/05/22 08:56 Dose: 20 mg Loperamide HCl (Loperamide Hcl 2 Mg Capsule) 4 mg PO Q4H PRN PRN Reason: Diarrhea Last Admin: 10/01/22 13:08 Dose: 4 mg Magnesium Hydroxide (Milk Of Magnesia 30 Ml Oral.Susp) 30 ml PO DAILY PRN PRN Reason: Constipation Last Admin: 09/29/22 21:27 Dose: 30 ml Meclizine HCl (Meclizine Hcl 12.5 Mg Tablet) 12.5 mg PO TID PRN PRN Reason: vertigo Multivitamins/Vitamin C (Multivitamin Tablet) 1 tab PO DAILY [facility] Last Admin: 10/05/22 08:55 Dose: 1 tab Olanzapine (Olanzapine 2.5 Mg Tablet) 2.5 mg PO BID PRN PRN Reason: agitation Risperidone (Risperidone 1 Mg Tablet) 1 mg PO TID [facility] Last Admin: 10/05/22 08:55 Dose: 1 mg Senna (Sennosides 8.6 Mg Tablet) 8.6 mg PO BEDTIME [facility] Last Admin: 10/04/22 20:38 Dose: 8.6 mg Sertraline HCl (Sertraline Hcl 50 Mg Tablet) 150 mg PO DAILY [facility] Last Admin: 10/05/22 08:56 Dose: 150 mg Trazodone HCl (Trazodone Hcl 25 Mg Halftab) 25 mg PO BID PRN PRN Reason: sleep, agitation Last Admin: 10/02/22 20:09 Dose: 25 mg Allergies Allergies Allergy/AdvReac Type Severity Reaction Status Date / Time No Known Allergies Allergy Verified 09/29/22 16:27 Assessment & Plan Assessment & Plan (1) Bipolar disorder: Status: Acute Code(s): F31.9 - Bipolar disorder, unspecified (2) Anorexia: Status: Acute Code(s): R63.0 - Anorexia (3) Vertigo: Status: Acute Code(s): R42 - Dizziness and giddiness (4) Routine medical exam: Status: Acute Code(s): Z00.00 - Encounter for general adult medical examination without abnormal findings Plan The patient is an elderly female, mostly Thai-speaking with a past history of bipolar disorder who was admitted for exacerbation of depression with neurovegetative symptoms and suicidal ideation. The patient was recently relocated from [place] to the [facility] and she wants to go back home. Plan 1. Gather collateral information. We have permission to contact her son and gather more information. 2. Continue with medical treatment and suggestions for the hospitalist for treatment of diabetes and high blood pressure. 3. Continue with blood work and other medical treatment. 4. CT scan without contrast head. The CT scan came back weight general mild ischemic changes 5. D/C Remeron. 6. Start Elavil 12.5 mg po qhs 7. Zoloft increased today up to 150 mg p.o. q.h.s. 10/04: no changes- remeron and elavil stopped yesterday to minimize falls risk 10/05: Leg tremor (left) and feeling tired and short of breath at times. Reports this has happened before. Reluctant around imaging and blood work (+/- hospitalist review) but agreed to same Reason for contiued inpatient stay Substantial Risk for: inability to function Time Spent With Patient Time: Total time managing care of this patient today ____ minutes.
[2022-10-05 18:00] VITALS: BP 130/74; PULSE 71; RESP 18; TEMP 36.4; O2SAT 96
[2022-10-05] MEDS: Amitriptyline HCl 25 MG TABLET 12.5 MG PO (20:36)
[2022-10-05] MEDS: Sennosides 8.6 MG TABLET PO (20:39)
[2022-10-06 08:24] LABS: MANUAL DIFF FLAG NO
[2022-10-06 08:28] LABS: Basophils Absolute Auto 0.1 X10*3/uL (0.0-0.2); Basophils Percent Auto 0.7 % (0-2); Eosinophils Absolute Auto 0.6 X10*3/uL (0.0-0.4); Eosinophils Percent Auto 7.2 % (0-4); Hematocrit 37.7 % (37.0-47.0); Hemoglobin 12.4 g/dl (12.0-16.0); Imm Gran Abs Auto 0.03 X10*3/uL (0.00-0.03); Imm Gran Pct Auto 0.4 % (0.0-0.4); Lymphocytes Percent Auto 25.4 % (20-40); Mean Corpuscular HGB Conc 32.9 g/dl (31.0-35.0); Mean Corpuscular Hemoglobin 28.1 pg (27.0-33.0); Mean Corpuscular Volume 85.5 fL (80.0-98.0); Monocytes Absolute Auto 0.7 X10*3/uL (0.1-1.2); Monocytes Percent Auto 8.2 % (2-11); Neutrophils Absolute Auto 4.7 x10*3/uL (2.0-8.3); Neutrophils Percent Auto 58.1 % (45-73); Platelet Count 232 X10*3/uL (160-400); Red Blood Count 4.41 X10*6/uL (4.20-5.50); Red Cell Distribution Width 19.3 % (11.0-16.0)
[2022-10-06 08:45] VITALS: BP 169/95; PULSE 95; RESP 18; TEMP 36.3; O2SAT 99
[2022-10-06 08:46] LABS: Alanine Aminotransferase 16 U/L (0-31); Albumin Level 4.2 g/dL (3.5-5.0); Alkaline Phosphatase 86 U/L (39-117); Anion Gap 13 (12-20); Aspartate Amino Transferase 19 U/L (5-31); Bilirubin Total 0.3 mg/dL (0.0-1.0); Blood Urea Nitrogen 21 mg/dL (9-16); Calcium 9.4 mg/dL (8.4-10.2); Carbon Dioxide 30 mmol/L (22-29); Chloride 103 mmol/L (96-108); Estimated Glomerular Filt Rate 49; Glucose Random 155 mg/dL (60-115); Potassium 4.9 mmol/L (3.3-5.1); Sodium 141 mmol/L (135-145); Total Protein 6.7 g/dL (6.5-8.0)
[2022-10-06] MEDS: Sertraline HCL 50 MG TABLET 150 MG PO (09:07)
[2022-10-06] MEDS: risperiDONE 1 MG TABLET PO ×3 (09:08→21:17)
[2022-10-06] MEDS: Multivitamin TABLET 1 TAB PO (09:08)
[2022-10-06] MEDS: clonazePAM 0.5 MG TABLET PO ×3 (09:08→21:13)
[2022-10-06] MEDS: lisinopriL 20 MG TABLET PO (09:08)
[2022-10-06] MEDS: lamoTRIgine 100 MG TABLET PO ×2 (09:08→21:17)
[2022-10-06] MEDS: Fluticasone Propionate 100 MCG BLST.W.DEV 2 PUFF INHALE (09:23)
[2022-10-06] MEDS: Acetaminophen 325 MG TABLET 650 MG PO (09:24)
[2022-10-06] MEDS: cloNIDine HCL 0.1 MG TABLET PO ×2 (09:34→21:17)
--- NOTE | 2022-10-06 12:34 | HO.PSYCHPN ---
Subjective Subjective Date of Service: 10/06/22 Reason For Visit: MDD recurrent, severe w/o psychotic behavior Subjective Notes: Conditional Voluntary Interim History: The nursing staff reported the patient had been compliant with her treatment, she remains on her room most of the time she is anxious and isolative. On interview the patient reports dysphoria. We recently increased Zoloft to 150 mg p.o. q.h.s. and start a low dose of Elavil since she was over-sedated with Remeron. She agreed to keep the same medications for now. Mental Status Exam Mental Status Exam Patient Appearance: Appropriate Patient Orientation: Person and Situation Level of Consciousness: Awake and Appropriate Mood Description: Withdrawn Affect Description: Depressed and Blunted Patient Cognition Impaired: Yes Ability to Follow Directions: Good Speech Pattern: Clear Hallucinations: None Delusions: Not Present Thought Process: Distracted and Slowed Thinking Thought Content: positive for [place] and positive for Circumstantial Judgement: Fair Diagnostics Vital Signs (24Hr): Vital Signs - 24 hr 10/05/22 18:00 10/06/22 08:45 Temperature 97.5 F 97.3 F Pulse Rate 71 95 Respiratory Rate 18 18 Blood Pressure 130/74 169/95 H Pulse Oximetry 96 99 Oxygen Delivery Method Room Air Room Air BMI result Body Mass Index 21.7 Labs 10/06/22 08:20 10/06/22 08:20 Labs: Laboratory Results - last 48 hr 10/06/22 10/06/22 08:20 08:20 WBC 8.0 RBC 4.41 Hgb 12.4 Hct 37.7 MCV 85.5 MCH 28.1 MCHC 32.9 RDW 19.3 H Plt Count 232 MPV 9.0 L Immature Gran % (Auto) 0.4 Neut % (Auto) 58.1 Lymph % (Auto) 25.4 [place] % (Auto) 8.2 Eos % (Auto) 7.2 H Baso % (Auto) 0.7 Lymph # (Auto) 2.0 [place] # (Auto) 0.7 Eos # (Auto) 0.6 H Baso # (Auto) 0.1 Abs Immat Gran (auto) 0.03 Absolute Neuts (auto) 4.7 Absolute Nucleated RBC 0.000 Nucleated RBC % (auto) 0.0 Sodium 141 Potassium 4.9 Chloride 103 Carbon Dioxide 30 H Anion Gap 13 BUN 21 H Creatinine 1.08 Estim Creat Clear Calc 35.0 Estimated GFR 49 Random Glucose 155 H Calcium 9.4 Total Bilirubin 0.3 AST 19 ALT 16 Alkaline Phosphatase 86 Total Protein 6.7 Albumin 4.2 Imaging Radiology Impressions: ITS Impressions Head CT 10/01/22 09:58 IMPRESSION: There are scattered chronic small vessel ischemic changes within the periventricular white matter. Otherwise unremarkable examination. No evidence of acute territorial infarct or hemorrhage. Chest X-Ray 10/05/22 13:56 IMPRESSION: Bibasilar atelectasis. Medications Medications Current Medications Acetaminophen (Acetaminophen 325 Mg Tablet) 650 mg PO Q6H PRN PRN Reason: Headache/Pain Mild Scale (1-3) Last Admin: 10/06/22 09:24 Dose: 650 mg Al Hydroxide/Mg Hydroxide (Magnesium Hydrox/Alum Hydrox 30 Ml Oral.Susp) 30 ml PO Q6H PRN PRN Reason: Heartburn/Nausea Last Admin: 10/05/22 11:04 Dose: 30 ml Amitriptyline HCl (Amitriptyline Hcl 25 Mg Tablet) 12.5 mg PO BEDTIME [facility] Last Admin: 10/05/22 20:36 Dose: 12.5 mg Clonazepam (Clonazepam 0.5 Mg Tablet) 0.5 mg PO TID [facility] Last Admin: 10/06/22 09:08 Dose: 0.5 mg Clonidine HCl (Clonidine Hcl 0.1 Mg Tablet) 0.1 mg PO BID [facility]; Protocol Last Admin: 10/06/22 09:34 Dose: 0.1 mg Fluticasone Propionate (Fluticasone Propionate 100 Mcg Blst.W.Dev) 2 puff INHALE DAILY [facility] Last Admin: 10/06/22 09:23 Dose: 2 puff Lamotrigine (Lamotrigine 100 Mg Tablet) 100 mg PO BID [facility] Last Admin: 10/06/22 09:08 Dose: 100 mg Lisinopril (Lisinopril 20 Mg Tablet) 20 mg PO DAILY [facility]; Protocol Last Admin: 10/06/22 09:08 Dose: 20 mg Loperamide HCl (Loperamide Hcl 2 Mg Capsule) 4 mg PO Q4H PRN PRN Reason: Diarrhea Last Admin: 10/01/22 13:08 Dose: 4 mg Magnesium Hydroxide (Milk Of Magnesia 30 Ml Oral.Susp) 30 ml PO DAILY PRN PRN Reason: Constipation Last Admin: 09/29/22 21:27 Dose: 30 ml Meclizine HCl (Meclizine Hcl 12.5 Mg Tablet) 12.5 mg PO TID PRN PRN Reason: vertigo Multivitamins/Vitamin C (Multivitamin Tablet) 1 tab PO DAILY [facility] Last Admin: 10/06/22 09:08 Dose: 1 tab Olanzapine (Olanzapine 2.5 Mg Tablet) 2.5 mg PO BID PRN PRN Reason: agitation Risperidone (Risperidone 1 Mg Tablet) 1 mg PO TID [facility] Last Admin: 10/06/22 09:08 Dose: 1 mg Senna (Sennosides 8.6 Mg Tablet) 8.6 mg PO BEDTIME [facility] Last Admin: 10/05/22 20:39 Dose: 8.6 mg Sertraline HCl (Sertraline Hcl 50 Mg Tablet) 150 mg PO DAILY [facility] Last Admin: 10/06/22 09:07 Dose: 150 mg Trazodone HCl (Trazodone Hcl 25 Mg Halftab) 25 mg PO BID PRN PRN Reason: sleep, agitation Last Admin: 10/02/22 20:09 Dose: 25 mg Allergies Allergies Allergy/AdvReac Type Severity Reaction Status Date / Time No Known Allergies Allergy Verified 09/29/22 16:27 Assessment & Plan Assessment & Plan (1) Bipolar disorder: Status: Acute Code(s): F31.9 - Bipolar disorder, unspecified (2) Anorexia: Status: Acute Code(s): R63.0 - Anorexia (3) Vertigo: Status: Acute Code(s): R42 - Dizziness and giddiness (4) Routine medical exam: Status: Acute Code(s): Z00.00 - Encounter for general adult medical examination without abnormal findings Plan The patient is an elderly female, mostly German-speaking with a past history of bipolar disorder who was admitted for exacerbation of depression with neurovegetative symptoms and suicidal ideation. The patient was recently relocated from [place] to the [facility] and she wants to go back home. Plan 1. Gather collateral information. We have permission to contact her son and gather more information. 2. Continue with medical treatment and suggestions for the hospitalist for treatment of diabetes and high blood pressure. 3. Continue with blood work and other medical treatment. 4. CT scan without contrast head. The CT scan came back weight general mild ischemic changes 5. D/C Remeron. 6. Start Elavil 12.5 mg po qhs 7. Zoloft increased up to 150 mg p.o. q.h.s on October 01. Reason for contiued inpatient stay Substantial Risk for: inability to function, rapid decompensation and med/psych decompensation Time Spent With Patient Time: Total time managing care of this patient today __20__ minutes.
[2022-10-06] MEDS: Magnesium Hydrox/Alum Hydrox 30 ML ORAL.SUSP PO ×2 (16:02→21:11)
[2022-10-06 18:00] VITALS: BP 123/74; PULSE 85; RESP 18; TEMP 36.3; O2SAT 98
[2022-10-06] MEDS: Amitriptyline HCl 25 MG TABLET 12.5 MG PO (21:09)
[2022-10-06] MEDS: Sennosides 8.6 MG TABLET PO (21:17)
[2022-10-07 08:00] VITALS: BP 136/76; PULSE 93; RESP 15; TEMP 36.3; O2SAT 98
[2022-10-07] MEDS: Omeprazole 20 MG CAPSULE.DR PO (09:17)
[2022-10-07] MEDS: clonazePAM 0.5 MG TABLET PO ×3 (09:18→21:28)
[2022-10-07] MEDS: risperiDONE 1 MG TABLET PO ×3 (09:18→21:28)
[2022-10-07] MEDS: lamoTRIgine 100 MG TABLET PO ×2 (09:18→21:29)
[2022-10-07] MEDS: cloNIDine HCL 0.1 MG TABLET PO ×2 (09:18→21:28)
[2022-10-07] MEDS: Multivitamin TABLET 1 TAB PO (09:18)
[2022-10-07] MEDS: lisinopriL 20 MG TABLET PO (09:19)
[2022-10-07] MEDS: Sertraline HCL 50 MG TABLET 150 MG PO (09:19)
[2022-10-07] MEDS: Fluticasone Propionate 100 MCG BLST.W.DEV 2 PUFF INHALE (09:25)
[2022-10-07] MEDS: Acetaminophen 325 MG TABLET 650 MG PO (14:04)
--- NOTE | 2022-10-07 16:38 | HO.PSYCHPN ---
Subjective Subjective Date of Service: 10/07/22 Reason For Visit: MDD recurrent, severe w/o psychotic behavior Subjective Notes: Conditional Voluntary Interim History: The nursing staff reported the patient has complained of anxiety and depression, she had been slightly confused mostly in the morning. Yesterday she showered and she was seen in the common areas. On interview the patient reported that she is still depressed and anxious. She also complained of heartburn so we are going to start omeprazole. We discussed options and she agreed to keeps all of 150 and Elavil at a very low dose for the meantime. Mental Status Exam Mental Status Exam Patient Appearance: Appropriate Patient Orientation: Person and Situation Level of Consciousness: Awake and Appropriate Patient Behavior: Guarded and Passive Mood Description: Calm Affect Description: Constricted Patient Cognition Impaired: Yes Ability to Follow Directions: Good Speech Pattern: Clear Hallucinations: None Delusions: Not Present Thought Process: Linear Thought Content: positive for Circumstantial Judgement: Fair Diagnostics Vital Signs (24Hr): Vital Signs - 24 hr 10/06/22 18:00 10/07/22 08:00 Temperature 97.4 F 97.3 F Pulse Rate 85 93 Respiratory Rate 18 15 Blood Pressure 123/74 136/76 Pulse Oximetry 98 98 Oxygen Delivery Method Room Air Room Air BMI result Body Mass Index 21.7 Labs 10/06/22 08:20 10/06/22 08:20 Labs: Laboratory Results - last 48 hr 10/06/22 10/06/22 08:20 08:20 WBC 8.0 RBC 4.41 Hgb 12.4 Hct 37.7 MCV 85.5 MCH 28.1 MCHC 32.9 RDW 19.3 H Plt Count 232 MPV 9.0 L Immature Gran % (Auto) 0.4 Neut % (Auto) 58.1 Lymph % (Auto) 25.4 [place] % (Auto) 8.2 Eos % (Auto) 7.2 H Baso % (Auto) 0.7 Lymph # (Auto) 2.0 [place] # (Auto) 0.7 Eos # (Auto) 0.6 H Baso # (Auto) 0.1 Abs Immat Gran (auto) 0.03 Absolute Neuts (auto) 4.7 Absolute Nucleated RBC 0.000 Nucleated RBC % (auto) 0.0 Sodium 141 Potassium 4.9 Chloride 103 Carbon Dioxide 30 H Anion Gap 13 BUN 21 H Creatinine 1.08 Estim Creat Clear Calc 35.0 Estimated GFR 49 Random Glucose 155 H Calcium 9.4 Total Bilirubin 0.3 AST 19 ALT 16 Alkaline Phosphatase 86 Total Protein 6.7 Albumin 4.2 Imaging Radiology Impressions: ITS Impressions Head CT 10/01/22 09:58 IMPRESSION: There are scattered chronic small vessel ischemic changes within the periventricular white matter. Otherwise unremarkable examination. No evidence of acute territorial infarct or hemorrhage. Chest X-Ray 10/05/22 13:56 IMPRESSION: Bibasilar atelectasis. Medications Medications Current Medications Acetaminophen (Acetaminophen 325 Mg Tablet) 650 mg PO Q6H PRN PRN Reason: Headache/Pain Mild Scale (1-3) Last Admin: 10/07/22 14:04 Dose: 650 mg Al Hydroxide/Mg Hydroxide (Magnesium Hydrox/Alum Hydrox 30 Ml Oral.Susp) 30 ml PO Q6H PRN PRN Reason: Heartburn/Nausea Last Admin: 10/06/22 21:11 Dose: 30 ml Amitriptyline HCl (Amitriptyline Hcl 25 Mg Tablet) 12.5 mg PO BEDTIME [facility] Last Admin: 10/06/22 21:09 Dose: 12.5 mg Clonazepam (Clonazepam 0.5 Mg Tablet) 0.5 mg PO TID [facility] Last Admin: 10/07/22 14:04 Dose: 0.5 mg Clonidine HCl (Clonidine Hcl 0.1 Mg Tablet) 0.1 mg PO BID [facility]; Protocol Last Admin: 10/07/22 09:18 Dose: 0.1 mg Fluticasone Propionate (Fluticasone Propionate 100 Mcg Blst.W.Dev) 2 puff INHALE DAILY [facility] Last Admin: 10/07/22 09:25 Dose: 2 puff Lamotrigine (Lamotrigine 100 Mg Tablet) 100 mg PO BID [facility] Last Admin: 10/07/22 09:18 Dose: 100 mg Lisinopril (Lisinopril 20 Mg Tablet) 20 mg PO DAILY [facility]; Protocol Last Admin: 10/07/22 09:19 Dose: 20 mg Loperamide HCl (Loperamide Hcl 2 Mg Capsule) 4 mg PO Q4H PRN PRN Reason: Diarrhea Last Admin: 10/01/22 13:08 Dose: 4 mg Magnesium Hydroxide (Milk Of Magnesia 30 Ml Oral.Susp) 30 ml PO DAILY PRN PRN Reason: Constipation Last Admin: 09/29/22 21:27 Dose: 30 ml Meclizine HCl (Meclizine Hcl 12.5 Mg Tablet) 12.5 mg PO TID PRN PRN Reason: vertigo Multivitamins/Vitamin C (Multivitamin Tablet) 1 tab PO DAILY [facility] Last Admin: 10/07/22 09:18 Dose: 1 tab Olanzapine (Olanzapine 2.5 Mg Tablet) 2.5 mg PO BID PRN PRN Reason: agitation Omeprazole (Omeprazole 20 Mg Capsule.Dr) 20 mg PO DAILY@0630 [facility] Risperidone (Risperidone 1 Mg Tablet) 1 mg PO TID [facility] Last Admin: 10/07/22 14:04 Dose: 1 mg Senna (Sennosides 8.6 Mg Tablet) 8.6 mg PO BEDTIME [facility] Last Admin: 10/06/22 21:17 Dose: 8.6 mg Sertraline HCl (Sertraline Hcl 50 Mg Tablet) 150 mg PO DAILY [facility] Last Admin: 10/07/22 09:19 Dose: 150 mg Trazodone HCl (Trazodone Hcl 25 Mg Halftab) 25 mg PO BID PRN PRN Reason: sleep, agitation Last Admin: 10/02/22 20:09 Dose: 25 mg Allergies Allergies Allergy/AdvReac Type Severity Reaction Status Date / Time No Known Allergies Allergy Verified 09/29/22 16:27 Assessment & Plan Assessment & Plan (1) Bipolar disorder: Status: Acute Code(s): F31.9 - Bipolar disorder, unspecified (2) Anorexia: Status: Acute Code(s): R63.0 - Anorexia (3) Vertigo: Status: Acute Code(s): R42 - Dizziness and giddiness (4) Routine medical exam: Status: Acute Code(s): Z00.00 - Encounter for general adult medical examination without abnormal findings Plan The patient is an elderly female, mostly Algerian-speaking with a past history of bipolar disorder who was admitted for exacerbation of depression with neurovegetative symptoms and suicidal ideation. The patient was recently relocated from [place] to the [facility] and she wants to go back home. Plan 1. Gather collateral information. We have permission to contact her son and gather more information. 2. Continue with medical treatment and suggestions for the hospitalist for treatment of diabetes and high blood pressure. 3. Continue with blood work and other medical treatment. 4. CT scan without contrast head. The CT scan came back weight general mild ischemic changes 5. D/C Remeron. 6. Start Elavil 12.5 mg po qhs 7. Zoloft increased up to 150 mg p.o. q.h.s on October 01. Reason for contiued inpatient stay Substantial Risk for: harm to self, inability to function, rapid decompensation and med/psych decompensation Time Spent With Patient Time: Total time managing care of this patient today ____ minutes.
[2022-10-07 18:00] VITALS: BP 111/57; PULSE 85; RESP 17; TEMP 36.7; O2SAT 94
[2022-10-07] MEDS: Amitriptyline HCl 25 MG TABLET 12.5 MG PO (21:28)
[2022-10-07] MEDS: Sennosides 8.6 MG TABLET PO (21:28)
[2022-10-08] MEDS: Omeprazole 20 MG CAPSULE.DR PO (06:42)
[2022-10-08] MEDS: Fluticasone Propionate 100 MCG BLST.W.DEV 2 PUFF INHALE (08:06)
[2022-10-08] MEDS: Sertraline HCL 50 MG TABLET 150 MG PO (08:06)
[2022-10-08] MEDS: lisinopriL 20 MG TABLET PO (08:07)
[2022-10-08] MEDS: Multivitamin TABLET 1 TAB PO (08:08)
[2022-10-08] MEDS: lamoTRIgine 100 MG TABLET PO ×2 (08:08→20:59)
[2022-10-08] MEDS: risperiDONE 1 MG TABLET PO ×3 (08:08→21:00)
[2022-10-08] MEDS: cloNIDine HCL 0.1 MG TABLET PO ×2 (08:08→20:59)
[2022-10-08] MEDS: clonazePAM 0.5 MG TABLET PO ×3 (08:09→20:59)
[2022-10-08 08:11] VITALS: BP 157/82; PULSE 85; RESP 18; TEMP 36.7; O2SAT 96
--- NOTE | 2022-10-08 12:18 | HO.PSYCHPN ---
Subjective Subjective Date of Service: 10/08/22 Reason For Visit: MDD recurrent, severe w/o psychotic behavior Subjective Notes: Conditional Voluntary Interim History: The nursing staff reported the patient slept well last night she had been anxious and depressed 01/05. She stated that she is feeling slightly better and she has been interacting with peers. The psychologist social discussed the possibility of short-term rehab after discharge. The occupational therapist reported that she did not want to participate on gait assessment. On interview the patient denies new symptoms still depressed we discussed options and she agreed to add Lamictal. Mental Status Exam Mental Status Exam Patient Appearance: Appropriate Patient Orientation: Person and Situation Level of Consciousness: Awake and Appropriate Patient Behavior: Guarded and Passive Mood Description: Constricted Affect Description: Calm Patient Cognition Impaired: Yes Ability to Follow Directions: Fair Speech Pattern: Clear Hallucinations: None Delusions: Not Present Thought Process: Linear Thought Content: positive for Intact Judgement: Fair Diagnostics Vital Signs (24Hr): Vital Signs - 24 hr 10/07/22 18:00 10/08/22 08:11 Temperature 98.1 F 98.1 F Pulse Rate 85 85 Respiratory Rate 17 18 Blood Pressure 111/57 L 157/82 H Pulse Oximetry 94 96 Oxygen Delivery Method Room Air Room Air BMI result Body Mass Index 21.7 Labs 10/06/22 08:20 10/06/22 08:20 Imaging Radiology Impressions: ITS Impressions Head CT 10/01/22 09:58 IMPRESSION: There are scattered chronic small vessel ischemic changes within the periventricular white matter. Otherwise unremarkable examination. No evidence of acute territorial infarct or hemorrhage. Chest X-Ray 10/05/22 13:56 IMPRESSION: Bibasilar atelectasis. Medications Medications Current Medications Acetaminophen (Acetaminophen 325 Mg Tablet) 650 mg PO Q6H PRN PRN Reason: Headache/Pain Mild Scale (1-3) Last Admin: 10/07/22 14:04 Dose: 650 mg Al Hydroxide/Mg Hydroxide (Magnesium Hydrox/Alum Hydrox 30 Ml Oral.Susp) 30 ml PO Q6H PRN PRN Reason: Heartburn/Nausea Last Admin: 10/06/22 21:11 Dose: 30 ml Amitriptyline HCl (Amitriptyline Hcl 25 Mg Tablet) 12.5 mg PO BEDTIME [facility] Last Admin: 10/07/22 21:28 Dose: 12.5 mg Clonazepam (Clonazepam 0.5 Mg Tablet) 0.5 mg PO TID [facility] Last Admin: 10/08/22 08:09 Dose: 0.5 mg Clonidine HCl (Clonidine Hcl 0.1 Mg Tablet) 0.1 mg PO BID [facility]; Protocol Last Admin: 10/08/22 08:08 Dose: 0.1 mg Fluticasone Propionate (Fluticasone Propionate 100 Mcg Blst.W.Dev) 2 puff INHALE DAILY [facility] Last Admin: 10/08/22 08:06 Dose: 2 puff Lamotrigine (Lamotrigine 100 Mg Tablet) 100 mg PO BID [facility] Last Admin: 10/08/22 08:08 Dose: 100 mg Lisinopril (Lisinopril 20 Mg Tablet) 20 mg PO DAILY [facility]; Protocol Last Admin: 10/08/22 08:07 Dose: 20 mg Loperamide HCl (Loperamide Hcl 2 Mg Capsule) 4 mg PO Q4H PRN PRN Reason: Diarrhea Last Admin: 10/01/22 13:08 Dose: 4 mg Magnesium Hydroxide (Milk Of Magnesia 30 Ml Oral.Susp) 30 ml PO DAILY PRN PRN Reason: Constipation Last Admin: 09/29/22 21:27 Dose: 30 ml Meclizine HCl (Meclizine Hcl 12.5 Mg Tablet) 12.5 mg PO TID PRN PRN Reason: vertigo Multivitamins/Vitamin C (Multivitamin Tablet) 1 tab PO DAILY [facility] Last Admin: 10/08/22 08:08 Dose: 1 tab Olanzapine (Olanzapine 2.5 Mg Tablet) 2.5 mg PO BID PRN PRN Reason: agitation Omeprazole (Omeprazole 20 Mg Capsule.Dr) 20 mg PO DAILY@0630 [facility] Last Admin: 10/08/22 06:42 Dose: 20 mg Risperidone (Risperidone 1 Mg Tablet) 1 mg PO TID [facility] Last Admin: 10/08/22 08:08 Dose: 1 mg Senna (Sennosides 8.6 Mg Tablet) 8.6 mg PO BEDTIME [facility] Last Admin: 10/07/22 21:28 Dose: 8.6 mg Sertraline HCl (Sertraline Hcl 50 Mg Tablet) 150 mg PO DAILY [facility] Last Admin: 10/08/22 08:06 Dose: 150 mg Trazodone HCl (Trazodone Hcl 25 Mg Halftab) 25 mg PO BID PRN PRN Reason: sleep, agitation Last Admin: 10/02/22 20:09 Dose: 25 mg Allergies Allergies Allergy/AdvReac Type Severity Reaction Status Date / Time No Known Allergies Allergy Verified 09/29/22 16:27 Assessment & Plan Assessment & Plan (1) Bipolar disorder: Status: Acute Code(s): F31.9 - Bipolar disorder, unspecified (2) Anorexia: Status: Acute Code(s): R63.0 - Anorexia (3) Vertigo: Status: Acute Code(s): R42 - Dizziness and giddiness (4) Routine medical exam: Status: Acute Code(s): Z00.00 - Encounter for general adult medical examination without abnormal findings Plan The patient is an elderly female, mostly Korean-speaking with a past history of bipolar disorder who was admitted for exacerbation of depression with neurovegetative symptoms and suicidal ideation. The patient was recently relocated from [place] to the [facility] and she wants to go back home. Plan 1. Gather collateral information. We have permission to contact her son and gather more information. 2. Continue with medical treatment and suggestions for the hospitalist for treatment of diabetes and high blood pressure. 3. Continue with blood work and other medical treatment. 4. CT scan without contrast head. The CT scan came back weight general mild ischemic changes 5. D/C Remeron. 6. Start Elavil 12.5 mg po qhs 7. Zoloft increased up to 150 mg p.o. q.h.s on October 01. 8. Start Lamictal 25 mg p.o. b.i.d. on October 08 Reason for contiued inpatient stay Substantial Risk for: inability to function, rapid decompensation and med/psych decompensation Time Spent With Patient Time: Total time managing care of this patient today _20___ minutes.
[2022-10-08 18:00] VITALS: BP 105/53; PULSE 75; RESP 16; TEMP 36.3; O2SAT 95
[2022-10-08] MEDS: Amitriptyline HCl 25 MG TABLET 12.5 MG PO (21:00)
[2022-10-08] MEDS: Sennosides 8.6 MG TABLET PO (21:00)
[2022-10-09] MEDS: Omeprazole 20 MG CAPSULE.DR PO (05:08)
[2022-10-09 07:00] VITALS: BMI 22.8
[2022-10-09] MEDS: clonazePAM 0.5 MG TABLET PO ×3 (08:53→20:33)
[2022-10-09] MEDS: Fluticasone Propionate 100 MCG BLST.W.DEV 2 PUFF INHALE (08:53)
[2022-10-09] MEDS: lisinopriL 20 MG TABLET PO (08:53)
[2022-10-09] MEDS: cloNIDine HCL 0.1 MG TABLET PO ×2 (08:54→20:34)
[2022-10-09] MEDS: risperiDONE 1 MG TABLET PO ×3 (08:55→20:33)
[2022-10-09] MEDS: Sertraline HCL 50 MG TABLET 150 MG PO (08:55)
[2022-10-09] MEDS: lamoTRIgine 100 MG TABLET PO ×2 (08:55→20:34)
[2022-10-09] MEDS: Multivitamin TABLET 1 TAB PO (09:38)
[2022-10-09 09:41] VITALS: BP 151/74; PULSE 91; RESP 18; TEMP 36.7; O2SAT 97
--- NOTE | 2022-10-09 14:08 | HO.PSYCHPN ---
Subjective Subjective Date of Service: 10/09/22 Reason For Visit: MDD recurrent, severe w/o psychotic behavior Subjective Notes: Conditional Voluntary Interim History: the nursing staff reported the patient had been compliant with treatment, she is walking with the help of his Merry Walker. She has verbalized that she wants to go back home and she feels better. On interview the patient reports mild improvement of her mood still she is dysphoric Mental Status Exam Mental Status Exam Patient Appearance: Appropriate Patient Orientation: Person and Situation Level of Consciousness: Awake and Appropriate Patient Behavior: Guarded and Passive Mood Description: Depressed Affect Description: Constricted Patient Cognition Impaired: Yes Ability to Follow Directions: Good Speech Pattern: Clear Hallucinations: None Delusions: Not Present Thought Process: Linear Thought Content: positive for Circumstantial Judgement: Fair Diagnostics Vital Signs (24Hr): Vital Signs - 24 hr 10/08/22 18:00 10/09/22 09:41 Temperature 97.3 F 98.1 F Pulse Rate 75 91 Respiratory Rate 16 18 Blood Pressure 105/53 L 151/74 H Pulse Oximetry 95 97 Oxygen Delivery Method Room Air Room Air BMI result Body Mass Index 21.7 Labs 10/06/22 08:20 10/06/22 08:20 Imaging Radiology Impressions: ITS Impressions Head CT 10/01/22 09:58 IMPRESSION: There are scattered chronic small vessel ischemic changes within the periventricular white matter. Otherwise unremarkable examination. No evidence of acute territorial infarct or hemorrhage. Chest X-Ray 10/05/22 13:56 IMPRESSION: Bibasilar atelectasis. Medications Medications Current Medications Acetaminophen (Acetaminophen 325 Mg Tablet) 650 mg PO Q6H PRN PRN Reason: Headache/Pain Mild Scale (1-3) Last Admin: 10/07/22 14:04 Dose: 650 mg Al Hydroxide/Mg Hydroxide (Magnesium Hydrox/Alum Hydrox 30 Ml Oral.Susp) 30 ml PO Q6H PRN PRN Reason: Heartburn/Nausea Last Admin: 10/06/22 21:11 Dose: 30 ml Amitriptyline HCl (Amitriptyline Hcl 25 Mg Tablet) 12.5 mg PO BEDTIME [facility] Last Admin: 10/08/22 21:00 Dose: 12.5 mg Clonazepam (Clonazepam 0.5 Mg Tablet) 0.5 mg PO TID [facility] Last Admin: 10/09/22 08:53 Dose: 0.5 mg Clonidine HCl (Clonidine Hcl 0.1 Mg Tablet) 0.1 mg PO BID [facility]; Protocol Last Admin: 10/09/22 08:54 Dose: 0.1 mg Fluticasone Propionate (Fluticasone Propionate 100 Mcg Blst.W.Dev) 2 puff INHALE DAILY [facility] Last Admin: 10/09/22 08:53 Dose: 2 puff Lamotrigine (Lamotrigine 100 Mg Tablet) 100 mg PO BID [facility] Last Admin: 10/09/22 08:55 Dose: 100 mg Lisinopril (Lisinopril 20 Mg Tablet) 20 mg PO DAILY [facility]; Protocol Last Admin: 10/09/22 08:53 Dose: 20 mg Loperamide HCl (Loperamide Hcl 2 Mg Capsule) 4 mg PO Q4H PRN PRN Reason: Diarrhea Last Admin: 10/01/22 13:08 Dose: 4 mg Magnesium Hydroxide (Milk Of Magnesia 30 Ml Oral.Susp) 30 ml PO DAILY PRN PRN Reason: Constipation Last Admin: 09/29/22 21:27 Dose: 30 ml Meclizine HCl (Meclizine Hcl 12.5 Mg Tablet) 12.5 mg PO TID PRN PRN Reason: vertigo Multivitamins/Vitamin C (Multivitamin Tablet) 1 tab PO DAILY [facility] Last Admin: 10/09/22 09:38 Dose: 1 tab Olanzapine (Olanzapine 2.5 Mg Tablet) 2.5 mg PO BID PRN PRN Reason: agitation Omeprazole (Omeprazole 20 Mg Capsule.Dr) 20 mg PO DAILY@0630 [facility] Last Admin: 10/09/22 05:08 Dose: 20 mg Risperidone (Risperidone 1 Mg Tablet) 1 mg PO TID [facility] Last Admin: 10/09/22 08:55 Dose: 1 mg Senna (Sennosides 8.6 Mg Tablet) 8.6 mg PO BEDTIME [facility] Last Admin: 10/08/22 21:00 Dose: 8.6 mg Sertraline HCl (Sertraline Hcl 50 Mg Tablet) 150 mg PO DAILY [facility] Last Admin: 10/09/22 08:55 Dose: 150 mg Trazodone HCl (Trazodone Hcl 25 Mg Halftab) 25 mg PO BID PRN PRN Reason: sleep, agitation Last Admin: 10/02/22 20:09 Dose: 25 mg Allergies Allergies Allergy/AdvReac Type Severity Reaction Status Date / Time No Known Allergies Allergy Verified 09/29/22 16:27 Assessment & Plan Assessment & Plan (1) Bipolar disorder: Status: Acute Code(s): F31.9 - Bipolar disorder, unspecified (2) Anorexia: Status: Acute Code(s): R63.0 - Anorexia (3) Vertigo: Status: Acute Code(s): R42 - Dizziness and giddiness (4) Routine medical exam: Status: Acute Code(s): Z00.00 - Encounter for general adult medical examination without abnormal findings Plan The patient is an elderly female, mostly Tuvaluan-speaking with a past history of bipolar disorder who was admitted for exacerbation of depression with neurovegetative symptoms and suicidal ideation. The patient was recently relocated from [place] to the [facility] and she wants to go back home. Plan 1. Gather collateral information. We have permission to contact her son and gather more information. 2. Continue with medical treatment and suggestions for the hospitalist for treatment of diabetes and high blood pressure. 3. Continue with blood work and other medical treatment. 4. CT scan without contrast head. The CT scan came back weight general mild ischemic changes 5. D/C Remeron. 6. Start Elavil 12.5 mg po qhs 7. Zoloft increased up to 150 mg p.o. q.h.s on October 01. 8. Start Lamictal 25 mg p.o. b.i.d. on October 08 Reason for contiued inpatient stay Substantial Risk for: inability to function, rapid decompensation and med/psych decompensation Time Spent With Patient Time: Total time managing care of this patient today __20__ minutes.
[2022-10-09 18:00] VITALS: BP 139/76; PULSE 66; TEMP 36.8; O2SAT 98
[2022-10-09] MEDS: Sennosides 8.6 MG TABLET PO (20:33)
[2022-10-09] MEDS: Amitriptyline HCl 25 MG TABLET 12.5 MG PO (20:33)
[2022-10-10] MEDS: Omeprazole 20 MG CAPSULE.DR PO (06:03)
[2022-10-10 08:35] VITALS: BP 131/68; PULSE 99; RESP 16; TEMP 36.4; O2SAT 97
[2022-10-10] MEDS: lisinopriL 20 MG TABLET PO (08:42)
[2022-10-10] MEDS: Multivitamin TABLET 1 TAB PO (08:42)
[2022-10-10] MEDS: lamoTRIgine 100 MG TABLET PO ×2 (08:42→20:14)
[2022-10-10] MEDS: clonazePAM 0.5 MG TABLET PO ×3 (08:42→20:14)
[2022-10-10] MEDS: cloNIDine HCL 0.1 MG TABLET PO ×2 (08:42→20:13)
[2022-10-10] MEDS: Sertraline HCL 50 MG TABLET 150 MG PO (08:42)
[2022-10-10] MEDS: risperiDONE 1 MG TABLET PO ×3 (08:42→20:16)
[2022-10-10] MEDS: Fluticasone Propionate 100 MCG BLST.W.DEV 2 PUFF INHALE (09:28)
--- NOTE | 2022-10-10 14:01 | HO.PSYCHPN ---
Subjective Subjective Date of Service: 10/10/22 Reason For Visit: MDD recurrent, severe w/o psychotic behavior Subjective Notes: Conditional Voluntary Interim History: The nursing staff reported the patient slept well, she has been compliant with medications. The occupational therapist reported that she attended to groups. The social work associate reported that she has a [facility] coverage for rehab. On interview the patient reports mild improvement of depression we will follow her improvement with the addition of Lamictal. Mental Status Exam Mental Status Exam Patient Appearance: Well Grooomed and Appropriate Patient Orientation: Person and Situation Level of Consciousness: Awake and Appropriate Patient Behavior: Guarded and Passive Mood Description: Withdrawn Affect Description: Constricted Patient Cognition Impaired: Yes Ability to Follow Directions: Good Speech Pattern: Clear Hallucinations: None Delusions: Not Present Thought Process: Distracted and Slowed Thinking Thought Content: positive for [place] and positive for Circumstantial Judgement: Fair Diagnostics Vital Signs (24Hr): Vital Signs - 24 hr 10/09/22 18:00 10/10/22 08:35 Temperature 98.3 F 97.5 F Pulse Rate 66 99 Respiratory Rate 16 Blood Pressure 139/76 131/68 Pulse Oximetry 98 97 Oxygen Delivery Method Room Air Room Air BMI result Body Mass Index 22.8 Labs 10/06/22 08:20 10/06/22 08:20 Imaging Radiology Impressions: ITS Impressions Head CT 10/01/22 09:58 IMPRESSION: There are scattered chronic small vessel ischemic changes within the periventricular white matter. Otherwise unremarkable examination. No evidence of acute territorial infarct or hemorrhage. Chest X-Ray 10/05/22 13:56 IMPRESSION: Bibasilar atelectasis. Medications Medications Current Medications Acetaminophen (Acetaminophen 325 Mg Tablet) 650 mg PO Q6H PRN PRN Reason: Headache/Pain Mild Scale (1-3) Last Admin: 10/07/22 14:04 Dose: 650 mg Al Hydroxide/Mg Hydroxide (Magnesium Hydrox/Alum Hydrox 30 Ml Oral.Susp) 30 ml PO Q6H PRN PRN Reason: Heartburn/Nausea Last Admin: 10/06/22 21:11 Dose: 30 ml Amitriptyline HCl (Amitriptyline Hcl 25 Mg Tablet) 12.5 mg PO BEDTIME [facility] Last Admin: 10/09/22 20:33 Dose: 12.5 mg Clonazepam (Clonazepam 0.5 Mg Tablet) 0.5 mg PO TID [facility] Last Admin: 10/10/22 08:42 Dose: 0.5 mg Clonidine HCl (Clonidine Hcl 0.1 Mg Tablet) 0.1 mg PO BID [facility]; Protocol Last Admin: 10/10/22 08:42 Dose: 0.1 mg Fluticasone Propionate (Fluticasone Propionate 100 Mcg Blst.W.Dev) 2 puff INHALE DAILY [facility] Last Admin: 10/10/22 09:28 Dose: 2 puff Lamotrigine (Lamotrigine 100 Mg Tablet) 100 mg PO BID [facility] Last Admin: 10/10/22 08:42 Dose: 100 mg Lisinopril (Lisinopril 20 Mg Tablet) 20 mg PO DAILY [facility]; Protocol Last Admin: 10/10/22 08:42 Dose: 20 mg Loperamide HCl (Loperamide Hcl 2 Mg Capsule) 4 mg PO Q4H PRN PRN Reason: Diarrhea Last Admin: 10/01/22 13:08 Dose: 4 mg Magnesium Hydroxide (Milk Of Magnesia 30 Ml Oral.Susp) 30 ml PO DAILY PRN PRN Reason: Constipation Last Admin: 09/29/22 21:27 Dose: 30 ml Meclizine HCl (Meclizine Hcl 12.5 Mg Tablet) 12.5 mg PO TID PRN PRN Reason: vertigo Multivitamins/Vitamin C (Multivitamin Tablet) 1 tab PO DAILY [facility] Last Admin: 10/10/22 08:42 Dose: 1 tab Olanzapine (Olanzapine 2.5 Mg Tablet) 2.5 mg PO BID PRN PRN Reason: agitation Omeprazole (Omeprazole 20 Mg Capsule.Dr) 20 mg PO DAILY@0630 [facility] Last Admin: 10/10/22 06:03 Dose: 20 mg Risperidone (Risperidone 1 Mg Tablet) 1 mg PO TID [facility] Last Admin: 10/10/22 08:42 Dose: 1 mg Senna (Sennosides 8.6 Mg Tablet) 8.6 mg PO BEDTIME [facility] Last Admin: 10/09/22 20:33 Dose: 8.6 mg Sertraline HCl (Sertraline Hcl 50 Mg Tablet) 150 mg PO DAILY [facility] Last Admin: 10/10/22 08:42 Dose: 150 mg Trazodone HCl (Trazodone Hcl 25 Mg Halftab) 25 mg PO BID PRN PRN Reason: sleep, agitation Last Admin: 10/02/22 20:09 Dose: 25 mg Allergies Allergies Allergy/AdvReac Type Severity Reaction Status Date / Time No Known Allergies Allergy Verified 09/29/22 16:27 Assessment & Plan Assessment & Plan (1) Bipolar disorder: Status: Acute Code(s): F31.9 - Bipolar disorder, unspecified (2) Anorexia: Status: Acute Code(s): R63.0 - Anorexia (3) Vertigo: Status: Acute Code(s): R42 - Dizziness and giddiness (4) Routine medical exam: Status: Acute Code(s): Z00.00 - Encounter for general adult medical examination without abnormal findings Plan The patient is an elderly female, mostly Sudanese-speaking with a past history of bipolar disorder who was admitted for exacerbation of depression with neurovegetative symptoms and suicidal ideation. The patient was recently relocated from [place] to the [facility] and she wants to go back home. Plan 1. Gather collateral information. We have permission to contact her son and gather more information. 2. Continue with medical treatment and suggestions for the hospitalist for treatment of diabetes and high blood pressure. 3. Continue with blood work and other medical treatment. 4. CT scan without contrast head. The CT scan came back weight general mild ischemic changes 5. D/C Remeron. 6. Start Elavil 12.5 mg po qhs 7. Zoloft increased up to 150 mg p.o. q.h.s on October 01. 8. Start Lamictal 25 mg p.o. b.i.d. on October 08 Reason for continued inpatient stay Substantial Risk for: inability to function, rapid decompensation and med/psych decompensation Time Spent With Patient Time: Total time managing care of this patient today _20___ minutes.
[2022-10-10 15:35] VITALS: BP 136/73
[2022-10-10 18:00] VITALS: BP 127/61; PULSE 76; RESP 16; TEMP 36.5; O2SAT 96
[2022-10-10] MEDS: Sennosides 8.6 MG TABLET PO (20:13)
[2022-10-10] MEDS: Amitriptyline HCl 25 MG TABLET 12.5 MG PO (20:14)
[2022-10-11] MEDS: Omeprazole 20 MG CAPSULE.DR PO (06:34)
[2022-10-11 08:45] VITALS: BP 142/88; PULSE 86; RESP 15; TEMP 35.9; O2SAT 98
[2022-10-11] MEDS: Fluticasone Propionate 100 MCG BLST.W.DEV 2 PUFF INHALE (08:52)
[2022-10-11] MEDS: clonazePAM 0.5 MG TABLET PO ×3 (08:52→21:41)
[2022-10-11] MEDS: Sertraline HCL 50 MG TABLET 150 MG PO (08:52)
[2022-10-11] MEDS: cloNIDine HCL 0.1 MG TABLET PO ×2 (08:52→21:41)
[2022-10-11] MEDS: lisinopriL 20 MG TABLET PO (08:52)
[2022-10-11] MEDS: lamoTRIgine 100 MG TABLET PO ×2 (08:52→21:41)
[2022-10-11] MEDS: risperiDONE 1 MG TABLET PO ×3 (08:52→21:40)
[2022-10-11] MEDS: Multivitamin TABLET 1 TAB PO (08:52)
[2022-10-11] MEDS: Magnesium Hydrox/Alum Hydrox 30 ML ORAL.SUSP PO (10:35)
--- NOTE | 2022-10-11 11:21 | HO.PSYCHPN ---
Subjective Subjective Date of Service: 10/11/22 Reason For Visit: MDD recurrent, severe w/o psychotic behavior Interim History: Patient one-to-one secondary to a fall remains depressed discharge planning effect Mental Status Exam Mental Status Exam Patient Appearance: Well Grooomed and Appropriate Patient Orientation: Person and Situation Level of Consciousness: Awake and Appropriate Patient Behavior: Guarded and Passive Mood Description: Withdrawn Affect Description: Constricted Patient Cognition Impaired: Yes Ability to Follow Directions: Good Speech Pattern: Clear Hallucinations: None Delusions: Not Present Thought Process: Distracted and Slowed Thinking Thought Content: positive for [place] and positive for Circumstantial Judgement: Fair Diagnostics Vital Signs (24Hr): Vital Signs - 24 hr 10/10/22 15:35 10/10/22 18:00 10/11/22 08:45 Temperature 97.7 F 96.6 F L Pulse Rate 76 86 Respiratory Rate 16 15 Blood Pressure 136/73 127/61 142/88 H Pulse Oximetry 96 98 Oxygen Delivery Method Room Air Room Air BMI result Body Mass Index 22.8 Labs 10/06/22 08:20 10/06/22 08:20 Imaging Radiology Impressions: ITS Impressions Head CT 10/01/22 09:58 IMPRESSION: There are scattered chronic small vessel ischemic changes within the periventricular white matter. Otherwise unremarkable examination. No evidence of acute territorial infarct or hemorrhage. Chest X-Ray 10/05/22 13:56 IMPRESSION: Bibasilar atelectasis. Medications Medications Current Medications Acetaminophen (Acetaminophen 325 Mg Tablet) 650 mg PO Q6H PRN PRN Reason: Headache/Pain Mild Scale (1-3) Last Admin: 10/07/22 14:04 Dose: 650 mg Al Hydroxide/Mg Hydroxide (Magnesium Hydrox/Alum Hydrox 30 Ml Oral.Susp) 30 ml PO Q6H PRN PRN Reason: Heartburn/Nausea Last Admin: 10/11/22 10:35 Dose: 30 ml Amitriptyline HCl (Amitriptyline Hcl 25 Mg Tablet) 12.5 mg PO BEDTIME [facility] Last Admin: 10/10/22 20:14 Dose: 12.5 mg Clonazepam (Clonazepam 0.5 Mg Tablet) 0.5 mg PO TID [facility] Last Admin: 10/11/22 08:52 Dose: 0.5 mg Clonidine HCl (Clonidine Hcl 0.1 Mg Tablet) 0.1 mg PO BID [facility]; Protocol Last Admin: 10/11/22 08:52 Dose: 0.1 mg Fluticasone Propionate (Fluticasone Propionate 100 Mcg Blst.W.Dev) 2 puff INHALE DAILY [facility] Last Admin: 10/11/22 08:52 Dose: 2 puff Lamotrigine (Lamotrigine 100 Mg Tablet) 100 mg PO BID [facility] Last Admin: 10/11/22 08:52 Dose: 100 mg Lisinopril (Lisinopril 20 Mg Tablet) 20 mg PO DAILY [facility]; Protocol Last Admin: 10/11/22 08:52 Dose: 20 mg Loperamide HCl (Loperamide Hcl 2 Mg Capsule) 4 mg PO Q4H PRN PRN Reason: Diarrhea Last Admin: 10/01/22 13:08 Dose: 4 mg Magnesium Hydroxide (Milk Of Magnesia 30 Ml Oral.Susp) 30 ml PO DAILY PRN PRN Reason: Constipation Last Admin: 09/29/22 21:27 Dose: 30 ml Meclizine HCl (Meclizine Hcl 12.5 Mg Tablet) 12.5 mg PO TID PRN PRN Reason: vertigo Multivitamins/Vitamin C (Multivitamin Tablet) 1 tab PO DAILY [facility] Last Admin: 10/11/22 08:52 Dose: 1 tab Olanzapine (Olanzapine 2.5 Mg Tablet) 2.5 mg PO BID PRN PRN Reason: agitation Omeprazole (Omeprazole 20 Mg Capsule.Dr) 20 mg PO DAILY@0630 [facility] Last Admin: 10/11/22 06:34 Dose: 20 mg Risperidone (Risperidone 1 Mg Tablet) 1 mg PO TID [facility] Last Admin: 10/11/22 08:52 Dose: 1 mg Senna (Sennosides 8.6 Mg Tablet) 8.6 mg PO BEDTIME [facility] Last Admin: 10/10/22 20:13 Dose: 8.6 mg Sertraline HCl (Sertraline Hcl 50 Mg Tablet) 150 mg PO DAILY [facility] Last Admin: 10/11/22 08:52 Dose: 150 mg Trazodone HCl (Trazodone Hcl 25 Mg Halftab) 25 mg PO BID PRN PRN Reason: sleep, agitation Last Admin: 10/02/22 20:09 Dose: 25 mg Allergies Allergies Allergy/AdvReac Type Severity Reaction Status Date / Time No Known Allergies Allergy Verified 09/29/22 16:27 Assessment & Plan Assessment & Plan (1) Bipolar disorder: Status: Acute Code(s): F31.9 - Bipolar disorder, unspecified (2) Anorexia: Status: Acute Code(s): R63.0 - Anorexia (3) Vertigo: Status: Acute Code(s): R42 - Dizziness and giddiness (4) Routine medical exam: Status: Acute Code(s): Z00.00 - Encounter for general adult medical examination without abnormal findings Plan The patient is an elderly female, mostly Sinhala-speaking with a past history of bipolar disorder who was admitted for exacerbation of depression with neurovegetative symptoms and suicidal ideation. The patient was recently relocated from [place] to the [facility] and she wants to go back home. Plan 1. Gather collateral information. We have permission to contact her son and gather more information. 2. Continue with medical treatment and suggestions for the hospitalist for treatment of diabetes and high blood pressure. 3. Continue with blood work and other medical treatment. 4. CT scan without contrast head. The CT scan came back weight general mild ischemic changes 5. D/C Remeron. 6. Start Elavil 12.5 mg po qhs 7. Zoloft increased up to 150 mg p.o. q.h.s on October 01. 8. Start Lamictal 25 mg p.o. b.i.d. on October 08 10/11/2022 Continue plan of care continue one-to-one discharge planning Reason for continued inpatient stay Substantial Risk for: inability to function and rapid decompensation Time Spent With Patient Time: Total time managing care of this patient today ____ minutes.
[2022-10-11 21:29] VITALS: BP 138/77; PULSE 84; RESP 18; TEMP 36.6; O2SAT 96
[2022-10-11] MEDS: traZODone HCL 25 MG HALFTAB PO (21:40)
[2022-10-11] MEDS: Sennosides 8.6 MG TABLET PO (21:40)
[2022-10-11] MEDS: Amitriptyline HCl 25 MG TABLET 12.5 MG PO (21:42)
[2022-10-12] MEDS: Omeprazole 20 MG CAPSULE.DR PO (05:53)
[2022-10-12 08:00] VITALS: BP 117/69; PULSE 93; RESP 16; TEMP 36.5; O2SAT 96
[2022-10-12] MEDS: lisinopriL 20 MG TABLET PO (08:38)
[2022-10-12] MEDS: Multivitamin TABLET 1 TAB PO (08:38)
[2022-10-12] MEDS: risperiDONE 1 MG TABLET PO ×3 (08:38→19:59)
[2022-10-12] MEDS: lamoTRIgine 100 MG TABLET PO ×2 (08:38→19:59)
[2022-10-12] MEDS: clonazePAM 0.5 MG TABLET PO ×3 (08:38→19:58)
[2022-10-12] MEDS: Sertraline HCL 50 MG TABLET 150 MG PO (08:38)
[2022-10-12] MEDS: cloNIDine HCL 0.1 MG TABLET PO ×2 (08:38→19:58)
[2022-10-12] MEDS: Fluticasone Propionate 100 MCG BLST.W.DEV 2 PUFF INHALE (09:14)
[2022-10-12] MEDS: Acetaminophen 325 MG TABLET 650 MG PO (12:55)
[2022-10-12 18:00] VITALS: BP 114/65; PULSE 69; RESP 18; TEMP 36.2; O2SAT 98
[2022-10-12] MEDS: Amitriptyline HCl 25 MG TABLET 12.5 MG PO (19:59)
[2022-10-12] MEDS: Sennosides 8.6 MG TABLET PO (19:59)
--- NOTE | 2022-10-12 22:46 | P.PNPSI_ITS ---
Subjective Subjective Date of Service: 10/12/22 Reason For Visit: MDD recurrent, severe w/o psychotic behavior Interim History: Patient on one-to-one appears stable not overly agitated not behavior early disrupted when seen Mental Status Exam Mental Status Exam Patient Appearance: Well Grooomed and Appropriate Patient Orientation: Person and Situation Level of Consciousness: Awake and Appropriate Patient Behavior: Guarded and Passive Mood Description: Withdrawn Affect Description: Constricted Patient Cognition Impaired: Yes Ability to Follow Directions: Good Speech Pattern: Clear Hallucinations: None Delusions: Not Present Thought Process: Distracted and Slowed Thinking Thought Content: positive for [place] and positive for Circumstantial Judgement: Fair Diagnostics Vital Signs (24Hr): Vital Signs - 24 hr 10/12/22 08:00 10/12/22 18:00 Temperature 97.7 F 97.1 F Pulse Rate 93 69 Respiratory Rate 16 18 Blood Pressure 117/69 114/65 Pulse Oximetry 96 98 Oxygen Delivery Method Room Air Room Air BMI result Body Mass Index 22.8 Labs 10/06/22 08:20 10/06/22 08:20 Imaging Radiology Impressions: ITS Impressions Head CT 10/01/22 09:58 IMPRESSION: There are scattered chronic small vessel ischemic changes within the periventricular white matter. Otherwise unremarkable examination. No evidence of acute territorial infarct or hemorrhage. Chest X-Ray 10/05/22 13:56 IMPRESSION: Bibasilar atelectasis. Medications Medications Current Medications Acetaminophen (Acetaminophen 325 Mg Tablet) 650 mg PO Q6H PRN PRN Reason: Headache/Pain Mild Scale (1-3) Last Admin: 10/12/22 12:55 Dose: 650 mg Al Hydroxide/Mg Hydroxide (Magnesium Hydrox/Alum Hydrox 30 Ml Oral.Susp) 30 ml PO Q6H PRN PRN Reason: Heartburn/Nausea Last Admin: 10/11/22 10:35 Dose: 30 ml Amitriptyline HCl (Amitriptyline Hcl 25 Mg Tablet) 12.5 mg PO BEDTIME [facility] Last Admin: 10/12/22 19:59 Dose: 12.5 mg Clonazepam (Clonazepam 0.5 Mg Tablet) 0.5 mg PO TID [facility] Last Admin: 10/12/22 19:58 Dose: 0.5 mg Clonidine HCl (Clonidine Hcl 0.1 Mg Tablet) 0.1 mg PO BID [facility]; Protocol Last Admin: 10/12/22 19:58 Dose: 0.1 mg Fluticasone Propionate (Fluticasone Propionate 100 Mcg Blst.W.Dev) 2 puff INHALE DAILY [facility] Last Admin: 10/12/22 09:14 Dose: 2 puff Lamotrigine (Lamotrigine 100 Mg Tablet) 100 mg PO BID [facility] Last Admin: 10/12/22 19:59 Dose: 100 mg Lisinopril (Lisinopril 20 Mg Tablet) 20 mg PO DAILY [facility]; Protocol Last Admin: 10/12/22 08:38 Dose: 20 mg Loperamide HCl (Loperamide Hcl 2 Mg Capsule) 4 mg PO Q4H PRN PRN Reason: Diarrhea Last Admin: 10/01/22 13:08 Dose: 4 mg Magnesium Hydroxide (Milk Of Magnesia 30 Ml Oral.Susp) 30 ml PO DAILY PRN PRN Reason: Constipation Last Admin: 09/29/22 21:27 Dose: 30 ml Meclizine HCl (Meclizine Hcl 12.5 Mg Tablet) 12.5 mg PO TID PRN PRN Reason: vertigo Multivitamins/Vitamin C (Multivitamin Tablet) 1 tab PO DAILY [facility] Last Admin: 10/12/22 08:38 Dose: 1 tab Olanzapine (Olanzapine 2.5 Mg Tablet) 2.5 mg PO BID PRN PRN Reason: agitation Omeprazole (Omeprazole 20 Mg Capsule.Dr) 20 mg PO DAILY@0630 [facility] Last Admin: 10/12/22 05:53 Dose: 20 mg Risperidone (Risperidone 1 Mg Tablet) 1 mg PO TID [facility] Last Admin: 10/12/22 19:59 Dose: 1 mg Senna (Sennosides 8.6 Mg Tablet) 8.6 mg PO BEDTIME [facility] Last Admin: 10/12/22 19:59 Dose: 8.6 mg Sertraline HCl (Sertraline Hcl 50 Mg Tablet) 150 mg PO DAILY [facility] Last Admin: 10/12/22 08:38 Dose: 150 mg Trazodone HCl (Trazodone Hcl 25 Mg Halftab) 25 mg PO BID PRN PRN Reason: sleep, agitation Last Admin: 10/11/22 21:40 Dose: 25 mg Allergies Allergies Allergy/AdvReac Type Severity Reaction Status Date / Time No Known Allergies Allergy Verified 09/29/22 16:27 Assessment & Plan Assessment & Plan (1) Bipolar disorder: Status: Acute Code(s): F31.9 - Bipolar disorder, unspecified (2) Anorexia: Status: Acute Code(s): R63.0 - Anorexia (3) Vertigo: Status: Acute Code(s): R42 - Dizziness and giddiness (4) Routine medical exam: Status: Acute Code(s): Z00.00 - Encounter for general adult medical examination without abnormal findings Plan The patient is an elderly female, mostly Lao-speaking with a past history of bipolar disorder who was admitted for exacerbation of depression with neurovegetative symptoms and suicidal ideation. The patient was recently relocated from [place] to the [facility] and she wants to go back home. Plan 1. Gather collateral information. We have permission to contact her son and gather more information. 2. Continue with medical treatment and suggestions for the hospitalist for treatment of diabetes and high blood pressure. 3. Continue with blood work and other medical treatment. 4. CT scan without contrast head. The CT scan came back weight general mild ischemic changes 5. D/C Remeron. 6. Start Elavil 12.5 mg po qhs 7. Zoloft increased up to 150 mg p.o. q.h.s on October 01. 8. Start Lamictal 25 mg p.o. b.i.d. on October 08 10/11/2022 Continue plan of care continue one-to-one discharge planning 10/12/2022 Continue plan of care discharge planning Reason for continued inpatient stay Substantial Risk for: inability to function and rapid decompensation Time Spent With Patient Time: Total time managing care of this patient today ____ minutes.
[2022-10-13] MEDS: Omeprazole 20 MG CAPSULE.DR PO (04:56)
[2022-10-13 08:10] VITALS: BP 128/78; PULSE 80; RESP 16; TEMP 36.5; O2SAT 93
[2022-10-13] MEDS: lisinopriL 20 MG TABLET PO (08:20)
[2022-10-13] MEDS: cloNIDine HCL 0.1 MG TABLET PO ×2 (08:20→21:44)
[2022-10-13] MEDS: Sertraline HCL 50 MG TABLET 150 MG PO (08:20)
[2022-10-13] MEDS: clonazePAM 0.5 MG TABLET PO ×3 (08:20→21:43)
[2022-10-13] MEDS: risperiDONE 1 MG TABLET PO ×3 (08:20→21:43)
[2022-10-13] MEDS: Multivitamin TABLET 1 TAB PO (08:20)
[2022-10-13] MEDS: lamoTRIgine 100 MG TABLET PO ×2 (08:21→21:43)
[2022-10-13] MEDS: Fluticasone Propionate 100 MCG BLST.W.DEV 2 PUFF INHALE (08:25)
--- NOTE | 2022-10-13 10:04 | HO.PSYCHPN ---
Subjective Subjective Date of Service: 10/13/22 Reason For Visit: MDD recurrent, severe w/o psychotic behavior Subjective Notes: Conditional Voluntary Interim History: The patient remains on one-to-one since she fell a few days ago. She reports that she has been weak and stable walking with the help of a [place] walker. She is pleasant and cooperative and medication compliant 100% of the time. On interview the patient denies new symptoms she wants to be discharged as soon as he eats possible, she reports that she still dysphoric and anxious but much better from before. Mental Status Exam Mental Status Exam Patient Appearance: Well Grooomed and Appropriate Patient Orientation: Person and Situation Level of Consciousness: Awake and Appropriate Patient Behavior: Guarded and Passive Mood Description: Calm Affect Description: Constricted Patient Cognition Impaired: Yes Ability to Follow Directions: Good Speech Pattern: Clear Hallucinations: None Delusions: Not Present Thought Process: Distracted and Linear Thought Content: positive for [place] and positive for Circumstantial Judgement: Fair Diagnostics Vital Signs (24Hr): Vital Signs - 24 hr 10/12/22 18:00 10/13/22 08:10 Temperature 97.1 F 97.7 F Pulse Rate 69 80 Respiratory Rate 18 16 Blood Pressure 114/65 128/78 Pulse Oximetry 98 93 Oxygen Delivery Method Room Air Room Air BMI result Body Mass Index 22.8 Labs 10/06/22 08:20 10/06/22 08:20 Imaging Radiology Impressions: ITS Impressions Head CT 10/01/22 09:58 IMPRESSION: There are scattered chronic small vessel ischemic changes within the periventricular white matter. Otherwise unremarkable examination. No evidence of acute territorial infarct or hemorrhage. Chest X-Ray 10/05/22 13:56 IMPRESSION: Bibasilar atelectasis. Medications Medications Current Medications Acetaminophen (Acetaminophen 325 Mg Tablet) 650 mg PO Q6H PRN PRN Reason: Headache/Pain Mild Scale (1-3) Last Admin: 10/12/22 12:55 Dose: 650 mg Al Hydroxide/Mg Hydroxide (Magnesium Hydrox/Alum Hydrox 30 Ml Oral.Susp) 30 ml PO Q6H PRN PRN Reason: Heartburn/Nausea Last Admin: 10/11/22 10:35 Dose: 30 ml Amitriptyline HCl (Amitriptyline Hcl 25 Mg Tablet) 12.5 mg PO BEDTIME [facility] Last Admin: 10/12/22 19:59 Dose: 12.5 mg Clonazepam (Clonazepam 0.5 Mg Tablet) 0.5 mg PO TID [facility] Last Admin: 10/13/22 08:20 Dose: 0.5 mg Clonidine HCl (Clonidine Hcl 0.1 Mg Tablet) 0.1 mg PO BID [facility]; Protocol Last Admin: 10/13/22 08:20 Dose: 0.1 mg Fluticasone Propionate (Fluticasone Propionate 100 Mcg Blst.W.Dev) 2 puff INHALE DAILY [facility] Last Admin: 10/13/22 08:25 Dose: 2 puff Lamotrigine (Lamotrigine 100 Mg Tablet) 100 mg PO BID [facility] Last Admin: 10/13/22 08:21 Dose: 100 mg Lisinopril (Lisinopril 20 Mg Tablet) 20 mg PO DAILY [facility]; Protocol Last Admin: 10/13/22 08:20 Dose: 20 mg Loperamide HCl (Loperamide Hcl 2 Mg Capsule) 4 mg PO Q4H PRN PRN Reason: Diarrhea Last Admin: 10/01/22 13:08 Dose: 4 mg Magnesium Hydroxide (Milk Of Magnesia 30 Ml Oral.Susp) 30 ml PO DAILY PRN PRN Reason: Constipation Last Admin: 09/29/22 21:27 Dose: 30 ml Meclizine HCl (Meclizine Hcl 12.5 Mg Tablet) 12.5 mg PO TID PRN PRN Reason: vertigo Multivitamins/Vitamin C (Multivitamin Tablet) 1 tab PO DAILY [facility] Last Admin: 10/13/22 08:20 Dose: 1 tab Olanzapine (Olanzapine 2.5 Mg Tablet) 2.5 mg PO BID PRN PRN Reason: agitation Omeprazole (Omeprazole 20 Mg Capsule.Dr) 20 mg PO DAILY@0630 [facility] Last Admin: 10/13/22 04:56 Dose: 20 mg Risperidone (Risperidone 1 Mg Tablet) 1 mg PO TID [facility] Last Admin: 10/13/22 08:20 Dose: 1 mg Senna (Sennosides 8.6 Mg Tablet) 8.6 mg PO BEDTIME [facility] Last Admin: 10/12/22 19:59 Dose: 8.6 mg Sertraline HCl (Sertraline Hcl 50 Mg Tablet) 150 mg PO DAILY [facility] Last Admin: 10/13/22 08:20 Dose: 150 mg Trazodone HCl (Trazodone Hcl 25 Mg Halftab) 25 mg PO BID PRN PRN Reason: sleep, agitation Last Admin: 10/11/22 21:40 Dose: 25 mg Allergies Allergies Allergy/AdvReac Type Severity Reaction Status Date / Time No Known Allergies Allergy Verified 09/29/22 16:27 Assessment & Plan Assessment & Plan (1) Bipolar disorder: Status: Acute Code(s): F31.9 - Bipolar disorder, unspecified (2) Anorexia: Status: Acute Code(s): R63.0 - Anorexia (3) Vertigo: Status: Acute Code(s): R42 - Dizziness and giddiness (4) Routine medical exam: Status: Acute Code(s): Z00.00 - Encounter for general adult medical examination without abnormal findings Plan The patient is an elderly female, mostly Urdu-speaking with a past history of bipolar disorder who was admitted for exacerbation of depression with neurovegetative symptoms and suicidal ideation. The patient was recently relocated from [place] to the [facility] and she wants to go back home. Plan 1. Gather collateral information. We have permission to contact her son and gather more information. 2. Continue with medical treatment and suggestions for the hospitalist for treatment of diabetes and high blood pressure. 3. Continue with blood work and other medical treatment. 4. CT scan without contrast head. The CT scan came back weight general mild ischemic changes 5. D/C Remeron. 6. Start Elavil 12.5 mg po qhs 7. Zoloft increased up to 150 mg p.o. q.h.s on October 01. 8. Start Lamictal 25 mg p.o. b.i.d. on October 08 . Increase Lamictal up to 50 mg p.o. b.i.d. on October 13. Reason for continued inpatient stay Substantial Risk for: inability to function, rapid decompensation and med/psych decompensation Time Spent With Patient Time: Total time managing care of this patient today __20__ minutes.
[2022-10-13 14:02] LABS: MANUAL DIFF FLAG NO
[2022-10-13 14:05] LABS: Basophils Absolute Auto 0.1 X10*3/uL (0.0-0.2); Basophils Percent Auto 0.7 % (0-2); Eosinophils Absolute Auto 0.5 X10*3/uL (0.0-0.4); Eosinophils Percent Auto 6.3 % (0-4); Hemoglobin 11.2 g/dl (12.0-16.0); Imm Gran Abs Auto 0.02 X10*3/uL (0.00-0.03); Imm Gran Pct Auto 0.3 % (0.0-0.4); Lymphocytes Absolute Auto 1.3 X10*3/uL (1.2-4.9); Lymphocytes Percent Auto 18.2 % (20-40); Mean Corpuscular Hemoglobin 27.8 pg (27.0-33.0); Mean Corpuscular Volume 86.8 fL (80.0-98.0); Mean Platelet Volume 9.1 fL (9.4-12.3); Monocytes Absolute Auto 0.6 X10*3/uL (0.1-1.2); Monocytes Percent Auto 7.7 % (2-11); Neutrophils Absolute Auto 4.9 x10*3/uL (2.0-8.3); Neutrophils Percent Auto 66.8 % (45-73); Platelet Count 228 X10*3/uL (160-400); Red Blood Count 4.03 X10*6/uL (4.20-5.50); Red Cell Distribution Width 18.6 % (11.0-16.0); White Blood Count 7.3 X10*3/uL (4.8-10.8)
[2022-10-13 18:00] VITALS: BP 127/78; PULSE 87; RESP 18; TEMP 37.1; O2SAT 95
[2022-10-13] MEDS: Amitriptyline HCl 25 MG TABLET 12.5 MG PO (21:43)
[2022-10-13] MEDS: Sennosides 8.6 MG TABLET PO (21:43)
[2022-10-14 08:00] VITALS: BP 139/75; PULSE 71; RESP 18; TEMP 36.6; O2SAT 95
[2022-10-14] MEDS: Multivitamin TABLET 1 TAB PO (08:17)
[2022-10-14] MEDS: lisinopriL 20 MG TABLET PO (08:17)
[2022-10-14] MEDS: risperiDONE 1 MG TABLET PO ×3 (08:17→20:32)
[2022-10-14] MEDS: clonazePAM 0.5 MG TABLET PO ×3 (08:17→20:32)
[2022-10-14] MEDS: cloNIDine HCL 0.1 MG TABLET PO ×2 (08:17→20:32)
[2022-10-14] MEDS: lamoTRIgine 100 MG TABLET PO ×2 (08:17→20:32)
[2022-10-14] MEDS: Omeprazole 20 MG CAPSULE.DR PO (08:17)
[2022-10-14 08:37] LABS: Alanine Aminotransferase 13 U/L (0-31); Alkaline Phosphatase 86 U/L (39-117); Anion Gap 11 (12-20); Aspartate Amino Transferase 13 U/L (5-31); Bilirubin Direct 0.1 mg/dL (0.0-0.5); Bilirubin Total 0.3 mg/dL (0.0-1.0); Blood Urea Nitrogen 18 mg/dL (9-16); Calcium 9.2 mg/dL (8.4-10.2); Carbon Dioxide 31 mmol/L (22-29); Chloride 102 mmol/L (96-108); Creatinine Clr Calc Pharmacy 42.5; Estimated Glomerular Filt Rate > 60; Glucose Random 107 mg/dL (60-115); Potassium 4.4 mmol/L (3.3-5.1); Sodium 140 mmol/L (135-145); Total Protein 6.2 g/dL (6.5-8.0)
[2022-10-14] MEDS: Fluticasone Propionate 100 MCG BLST.W.DEV 2 PUFF INHALE (10:11)
[2022-10-14] MEDS: Sertraline HCL 50 MG TABLET 150 MG PO (10:11)
--- NOTE | 2022-10-14 11:57 | P.PNPSI_ITS ---
Subjective Subjective Date of Service: 10/14/22 Reason For Visit: MDD recurrent, severe w/o psychotic behavior Subjective Notes: Conditional Voluntary Interim History: the nursing staff reported the patient had been compliant with treatment, she reports feeling anxious and a little better on depression. The social scientist reported that she has been referred for VNA services since she is going to go back to her son's home. On interview the patient denies new symptoms she feels a little better no side effects with increased of antidepressants. Mental Status Exam Mental Status Exam Patient Appearance: Appropriate Patient Orientation: Person and Situation Level of Consciousness: Awake and Appropriate Patient Behavior: Guarded and Passive Mood Description: Withdrawn and Constricted Affect Description: Calm and Constricted Patient Cognition Impaired: Yes Ability to Follow Directions: Good Speech Pattern: Clear Hallucinations: None Delusions: Not Present Thought Process: Distracted and Evasive Thought Content: positive for [place] and positive for Circumstantial Judgement: Fair Diagnostics Vital Signs (24Hr): Vital Signs - 24 hr 10/13/22 18:00 10/14/22 08:00 Temperature 98.8 F 97.8 F Pulse Rate 87 71 Respiratory Rate 18 18 Blood Pressure 127/78 139/75 Pulse Oximetry 95 95 Oxygen Delivery Method Room Air BMI result Body Mass Index 22.8 Labs 10/13/22 13:51 10/14/22 07:54 Labs: Laboratory Results - last 48 hr 10/13/22 10/14/22 13:51 07:54 WBC 7.3 RBC 4.03 L Hgb 11.2 L Hct 35.0 L MCV 86.8 MCH 27.8 MCHC 32.0 RDW 18.6 H Plt Count 228 MPV 9.1 L Immature Gran % (Auto) 0.3 Neut % (Auto) 66.8 Lymph % (Auto) 18.2 L [place] % (Auto) 7.7 Eos % (Auto) 6.3 H Baso % (Auto) 0.7 Lymph # (Auto) 1.3 [place] # (Auto) 0.6 Eos # (Auto) 0.5 H Baso # (Auto) 0.1 Abs Immat Gran (auto) 0.02 Absolute Neuts (auto) 4.9 Absolute Nucleated RBC 0.000 Nucleated RBC % (auto) 0.0 Sodium 140 Potassium 4.4 Chloride 102 Carbon Dioxide 31 H Anion Gap 11 L BUN 18 H Creatinine 0.89 Estim Creat Clear Calc 42.5 Estimated GFR > 60 Random Glucose 107 Calcium 9.2 Total Bilirubin 0.3 Direct Bilirubin 0.1 AST 13 ALT 13 Alkaline Phosphatase 86 Total Protein 6.2 L Albumin 4.0 Imaging Radiology Impressions: ITS Impressions Head CT 10/01/22 09:58 IMPRESSION: There are scattered chronic small vessel ischemic changes within the periventricular white matter. Otherwise unremarkable examination. No evidence of acute territorial infarct or hemorrhage. Chest X-Ray 10/05/22 13:56 IMPRESSION: Bibasilar atelectasis. Medications Medications Current Medications Acetaminophen (Acetaminophen 325 Mg Tablet) 650 mg PO Q6H PRN PRN Reason: Headache/Pain Mild Scale (1-3) Last Admin: 10/12/22 12:55 Dose: 650 mg Al Hydroxide/Mg Hydroxide (Magnesium Hydrox/Alum Hydrox 30 Ml Oral.Susp) 30 ml PO Q6H PRN PRN Reason: Heartburn/Nausea Last Admin: 10/11/22 10:35 Dose: 30 ml Amitriptyline HCl (Amitriptyline Hcl 25 Mg Tablet) 12.5 mg PO BEDTIME LIOR Last Admin: 10/13/22 21:43 Dose: 12.5 mg Clonazepam (Clonazepam 0.5 Mg Tablet) 0.5 mg PO TID LIOR Last Admin: 10/14/22 08:17 Dose: 0.5 mg Clonidine HCl (Clonidine Hcl 0.1 Mg Tablet) 0.1 mg PO BID [facility]; Protocol Last Admin: 10/14/22 08:17 Dose: 0.1 mg Fluticasone Propionate (Fluticasone Propionate 100 Mcg Blst.W.Dev) 2 puff INHALE DAILY [facility] Last Admin: 10/14/22 10:11 Dose: 2 puff Lamotrigine (Lamotrigine 100 Mg Tablet) 100 mg PO BID [facility] Last Admin: 10/14/22 08:17 Dose: 100 mg Lisinopril (Lisinopril 20 Mg Tablet) 20 mg PO DAILY [facility]; Protocol Last Admin: 10/14/22 08:17 Dose: 20 mg Loperamide HCl (Loperamide Hcl 2 Mg Capsule) 4 mg PO Q4H PRN PRN Reason: Diarrhea Last Admin: 10/01/22 13:08 Dose: 4 mg Magnesium Hydroxide (Milk Of Magnesia 30 Ml Oral.Susp) 30 ml PO DAILY PRN PRN Reason: Constipation Last Admin: 09/29/22 21:27 Dose: 30 ml Meclizine HCl (Meclizine Hcl 12.5 Mg Tablet) 12.5 mg PO TID PRN PRN Reason: vertigo Multivitamins/Vitamin C (Multivitamin Tablet) 1 tab PO DAILY [facility] Last Admin: 10/14/22 08:17 Dose: 1 tab Olanzapine (Olanzapine 2.5 Mg Tablet) 2.5 mg PO BID PRN PRN Reason: agitation Omeprazole (Omeprazole 20 Mg Capsule.Dr) 20 mg PO DAILY@0630 [facility] Last Admin: 10/14/22 08:17 Dose: 20 mg Risperidone (Risperidone 1 Mg Tablet) 1 mg PO TID [facility] Last Admin: 10/14/22 08:17 Dose: 1 mg Senna (Sennosides 8.6 Mg Tablet) 8.6 mg PO BEDTIME [facility] Last Admin: 10/13/22 21:43 Dose: 8.6 mg Sertraline HCl (Sertraline Hcl 50 Mg Tablet) 150 mg PO DAILY [facility] Last Admin: 10/14/22 10:11 Dose: 150 mg Trazodone HCl (Trazodone Hcl 25 Mg Halftab) 25 mg PO BID PRN PRN Reason: sleep, agitation Last Admin: 10/11/22 21:40 Dose: 25 mg Allergies Allergies Allergy/AdvReac Type Severity Reaction Status Date / Time No Known Allergies Allergy Verified 09/29/22 16:27 Assessment & Plan Assessment & Plan (1) Bipolar disorder: Status: Acute Code(s): F31.9 - Bipolar disorder, unspecified (2) Anorexia: Status: Acute Code(s): R63.0 - Anorexia (3) Vertigo: Status: Acute Code(s): R42 - Dizziness and giddiness (4) Routine medical exam: Status: Acute Code(s): Z00.00 - Encounter for general adult medical examination without abnormal findings Plan The patient is an elderly female, mostly [place]-speaking with a past history of bipolar disorder who was admitted for exacerbation of depression with neurovegetative symptoms and suicidal ideation. The patient was recently relocated from [place] to the [facility] and she wants to go back home. Plan 1. Gather collateral information. We have permission to contact her son and gather more information. 2. Continue with medical treatment and suggestions for the hospitalist for treatment of diabetes and high blood pressure. 3. Continue with blood work and other medical treatment. 4. CT scan without contrast head. The CT scan came back weight general mild ischemic changes 5. D/C Remeron. 6. Start Elavil 12.5 mg po qhs 7. Zoloft increased up to 150 mg p.o. q.h.s on October 01. 8. Keep Lamictal as prescribed Reason for continued inpatient stay Substantial Risk for: inability to function, rapid decompensation and med/psych decompensation Time Spent With Patient Time: Total time managing care of this patient today _20___ minutes.
[2022-10-14 15:54] VITALS: BP 174/83; PULSE 79
[2022-10-14 20:30] VITALS: BP 160/84; PULSE 64; RESP 18; TEMP 37; O2SAT 97
[2022-10-14] MEDS: Sennosides 8.6 MG TABLET PO (20:32)
[2022-10-14] MEDS: Amitriptyline HCl 25 MG TABLET 12.5 MG PO (20:32)
[2022-10-15] MEDS: Omeprazole 20 MG CAPSULE.DR PO (05:44)
[2022-10-15 08:10] VITALS: BP 144/88; PULSE 96; RESP 16; TEMP 36.7; O2SAT 95
[2022-10-15] MEDS: Sertraline HCL 50 MG TABLET 150 MG PO (08:25)
[2022-10-15] MEDS: lamoTRIgine 100 MG TABLET PO ×2 (08:26→20:09)
[2022-10-15] MEDS: cloNIDine HCL 0.1 MG TABLET PO ×2 (08:26→20:09)
[2022-10-15] MEDS: risperiDONE 1 MG TABLET PO ×3 (08:26→20:09)
[2022-10-15] MEDS: Fluticasone Propionate 100 MCG BLST.W.DEV 2 PUFF INHALE (08:26)
[2022-10-15] MEDS: lisinopriL 20 MG TABLET PO (08:26)
[2022-10-15] MEDS: Multivitamin TABLET 1 TAB PO (08:26)
[2022-10-15] MEDS: clonazePAM 0.5 MG TABLET PO ×3 (08:26→20:09)
--- NOTE | 2022-10-15 13:27 | HO.PSYCHPN ---
Subjective Subjective Date of Service: 10/15/22 Reason For Visit: MDD recurrent, severe w/o psychotic behavior Subjective Notes: Conditional Voluntary Interim History: The nursing staff reported the patient slept 7 hours, she had been fully compliant with treatment. The occupational therapist reported that she participate well in groups. The health care social worker reported that she has been doing fairly well there are going to refer her case for VNA and were planning fine to discharge her tomorrow at 11:00 o'clock. On interview the patient reports that she is feeling much better, no suicidal ideation willing to be discharged as soon as possible. Mental Status Exam Mental Status Exam Patient Appearance: Well Grooomed and Appropriate Patient Orientation: Person and Situation Level of Consciousness: Awake and Appropriate Patient Behavior: Guarded and Passive Mood Description: Withdrawn and Depressed Affect Description: Constricted Patient Cognition Impaired: Yes Ability to Follow Directions: Good Speech Pattern: Clear Hallucinations: None Delusions: Not Present Thought Process: Linear Thought Content: positive for Circumstantial Judgement: Fair Diagnostics Vital Signs (24Hr): Vital Signs - 24 hr 10/14/22 15:54 10/14/22 20:30 10/15/22 08:10 Temperature 98.6 F 98.1 F Pulse Rate 79 64 96 Respiratory Rate 18 16 Blood Pressure 174/83 H 160/84 H 144/88 H Pulse Oximetry 97 95 Oxygen Delivery Method Room Air Room Air BMI result Body Mass Index 22.8 Labs 10/13/22 13:51 10/14/22 07:54 Labs: Laboratory Results - last 48 hr 10/13/22 10/14/22 13:51 07:54 WBC 7.3 RBC 4.03 L Hgb 11.2 L Hct 35.0 L MCV 86.8 MCH 27.8 MCHC 32.0 RDW 18.6 H Plt Count 228 MPV 9.1 L Immature Gran % (Auto) 0.3 Neut % (Auto) 66.8 Lymph % (Auto) 18.2 L [place] % (Auto) 7.7 Eos % (Auto) 6.3 H Baso % (Auto) 0.7 Lymph # (Auto) 1.3 [place] # (Auto) 0.6 Eos # (Auto) 0.5 H Baso # (Auto) 0.1 Abs Immat Gran (auto) 0.02 Absolute Neuts (auto) 4.9 Absolute Nucleated RBC 0.000 Nucleated RBC % (auto) 0.0 Sodium 140 Potassium 4.4 Chloride 102 Carbon Dioxide 31 H Anion Gap 11 L BUN 18 H Creatinine 0.89 Estim Creat Clear Calc 42.5 Estimated GFR > 60 Random Glucose 107 Calcium 9.2 Total Bilirubin 0.3 Direct Bilirubin 0.1 AST 13 ALT 13 Alkaline Phosphatase 86 Total Protein 6.2 L Albumin 4.0 Imaging Radiology Impressions: ITS Impressions Head CT 10/01/22 09:58 IMPRESSION: There are scattered chronic small vessel ischemic changes within the periventricular white matter. Otherwise unremarkable examination. No evidence of acute territorial infarct or hemorrhage. Chest X-Ray 10/05/22 13:56 IMPRESSION: Bibasilar atelectasis. Medications Medications Current Medications Acetaminophen (Acetaminophen 325 Mg Tablet) 650 mg PO Q6H PRN PRN Reason: Headache/Pain Mild Scale (1-3) Last Admin: 10/12/22 12:55 Dose: 650 mg Al Hydroxide/Mg Hydroxide (Magnesium Hydrox/Alum Hydrox 30 Ml Oral.Susp) 30 ml PO Q6H PRN PRN Reason: Heartburn/Nausea Last Admin: 10/11/22 10:35 Dose: 30 ml Amitriptyline HCl (Amitriptyline Hcl 25 Mg Tablet) 12.5 mg PO BEDTIME LIOR Last Admin: 10/14/22 20:32 Dose: 12.5 mg Clonazepam (Clonazepam 0.5 Mg Tablet) 0.5 mg PO TID LIOR Last Admin: 10/15/22 08:26 Dose: 0.5 mg Clonidine HCl (Clonidine Hcl 0.1 Mg Tablet) 0.1 mg PO BID [facility]; Protocol Last Admin: 10/15/22 08:26 Dose: 0.1 mg Fluticasone Propionate (Fluticasone Propionate 100 Mcg Blst.W.Dev) 2 puff INHALE DAILY LIOR Last Admin: 10/15/22 08:26 Dose: 2 puff Lamotrigine (Lamotrigine 100 Mg Tablet) 100 mg PO BID [facility] Last Admin: 10/15/22 08:26 Dose: 100 mg Lisinopril (Lisinopril 20 Mg Tablet) 20 mg PO DAILY [facility]; Protocol Last Admin: 10/15/22 08:26 Dose: 20 mg Loperamide HCl (Loperamide Hcl 2 Mg Capsule) 4 mg PO Q4H PRN PRN Reason: Diarrhea Last Admin: 10/01/22 13:08 Dose: 4 mg Magnesium Hydroxide (Milk Of Magnesia 30 Ml Oral.Susp) 30 ml PO DAILY PRN PRN Reason: Constipation Last Admin: 09/29/22 21:27 Dose: 30 ml Meclizine HCl (Meclizine Hcl 12.5 Mg Tablet) 12.5 mg PO TID PRN PRN Reason: vertigo Multivitamins/Vitamin C (Multivitamin Tablet) 1 tab PO DAILY [facility] Last Admin: 10/15/22 08:26 Dose: 1 tab Olanzapine (Olanzapine 2.5 Mg Tablet) 2.5 mg PO BID PRN PRN Reason: agitation Omeprazole (Omeprazole 20 Mg Capsule.Dr) 20 mg PO DAILY@0630 [facility] Last Admin: 10/15/22 05:44 Dose: 20 mg Risperidone (Risperidone 1 Mg Tablet) 1 mg PO TID [facility] Last Admin: 10/15/22 08:26 Dose: 1 mg Senna (Sennosides 8.6 Mg Tablet) 8.6 mg PO BEDTIME [facility] Last Admin: 10/14/22 20:32 Dose: 8.6 mg Sertraline HCl (Sertraline Hcl 50 Mg Tablet) 150 mg PO DAILY [facility] Last Admin: 10/15/22 08:25 Dose: 150 mg Trazodone HCl (Trazodone Hcl 25 Mg Halftab) 25 mg PO BID PRN PRN Reason: sleep, agitation Last Admin: 10/11/22 21:40 Dose: 25 mg Allergies Allergies Allergy/AdvReac Type Severity Reaction Status Date / Time No Known Allergies Allergy Verified 09/29/22 16:27 Assessment & Plan Assessment & Plan (1) Bipolar disorder: Status: Acute Code(s): F31.9 - Bipolar disorder, unspecified (2) Anorexia: Status: Acute Code(s): R63.0 - Anorexia (3) Vertigo: Status: Acute Code(s): R42 - Dizziness and giddiness (4) Routine medical exam: Status: Acute Code(s): Z00.00 - Encounter for general adult medical examination without abnormal findings Plan The patient is an elderly female, mostly Divehi-speaking with a past history of bipolar disorder who was admitted for exacerbation of depression with neurovegetative symptoms and suicidal ideation. The patient was recently relocated from [place] to the [facility] and she wants to go back home. Plan 1. Gather collateral information. We have permission to contact her son and gather more information. 2. Continue with medical treatment and suggestions for the hospitalist for treatment of diabetes and high blood pressure. 3. Continue with blood work and other medical treatment. 4. CT scan without contrast head. The CT scan came back weight general mild ischemic changes 5. D/C Remeron. 6. Start Elavil 12.5 mg po qhs 7. Zoloft increased up to 150 mg p.o. q.h.s on October 01. 8. Keep Lamictal as prescribed Reason for continued inpatient stay Substantial Risk for: inability to function, rapid decompensation and med/psych decompensation Time Spent With Patient Time: Total time managing care of this patient today __20__ minutes.
[2022-10-15 18:00] VITALS: BP 135/70; PULSE 83; RESP 18; TEMP 36.2; O2SAT 98
[2022-10-15] MEDS: Amitriptyline HCl 25 MG TABLET 12.5 MG PO (20:08)
[2022-10-15] MEDS: Sennosides 8.6 MG TABLET PO (20:09)
[2022-10-16] MEDS: Omeprazole 20 MG CAPSULE.DR PO (06:13)
[2022-10-16 08:05] VITALS: BP 135/84; PULSE 85; RESP 16; TEMP 36.7; O2SAT 97
--- NOTE | 2022-10-16 08:16 | P.DS_ITS ---
DS: Providers Provider Date of Service: 10/16/22 Date of admission: 09/29/22 15:42 Date of discharge: 10/16/22 Primary care physician: Catherine Vega MD Consults: 09/29/22 16:48 Consult to Hospitalist Routine Comment: Transfer from outside facility Consulting Provider: Hospitalist Reason For Exam: Transfer from outside facility Attending physician on discharge: Louie Reeves DS: Diagnosis Discharge Diagnosis (1) Bipolar disorder: Status: Acute (2) Anorexia: Status: Acute (3) Vertigo: Status: Acute (4) Routine medical exam: Status: Acute DS: Medications Discharge Medications Home Medications: Home Medications Medication Instructions Recorded Confirmed clonazepam 0.5 mg tablet 0.5 mg PO TID 09/30/22 09/30/22 clonidine HCl 0.1 mg tablet 0.1 mg PO BID 09/30/22 09/30/22 diphenhydramine HCl 50 mg capsule 50 mg PO BEDTIME PRN insomnia 09/30/22 09/30/22 (Banophen) ferrous gluconate 324 mg (38 mg 324 mg PO DAILY 09/30/22 09/30/22 iron) tablet lamotrigine 100 mg tablet 100 mg PO BID 09/30/22 09/30/22 lamotrigine 100 mg tablet 100 mg PO BID 09/30/22 09/30/22 multivitamin-iron 9 mg-folic acid 1 tab PO DAILY 09/30/22 09/30/22 400 mcg-calcium and minerals tablet (Therapeutic-M) risperidone 1 mg tablet 1 mg PO TID 09/30/22 09/30/22 sertraline 50 mg tablet 50 mg PO DAILY 09/30/22 09/30/22 Mental Status Exam Mental Status Exam Patient Appearance: Well Grooomed and Appropriate Patient Orientation: Person, Place and Situation Level of Consciousness: Awake and Appropriate Patient Behavior: Guarded and Passive Mood Description: Calm and Depressed Affect Description: Constricted Patient Cognition Impaired: Yes Ability to Follow Directions: Good Speech Pattern: Clear Hallucinations: None Delusions: Not Present Thought Process: Linear Thought Content: positive for [place] and positive for Circumstantial Judgement: Fair Data Data Completed and Pending Completed studies during hospitalization [Text1]: 10/13/22 10/14/22 13:51 07:54 WBC 7.3 RBC 4.03 L Hgb 11.2 L Hct 35.0 L MCV 86.8 MCH 27.8 MCHC 32.0 RDW 18.6 H Plt Count 228 MPV 9.1 L Immature Gran % (Auto) 0.3 Neut % (Auto) 66.8 Lymph % (Auto) 18.2 L [place] % (Auto) 7.7 Eos % (Auto) 6.3 H Baso % (Auto) 0.7 Lymph # (Auto) 1.3 [place] # (Auto) 0.6 Eos # (Auto) 0.5 H Baso # (Auto) 0.1 Abs Immat Gran (auto) 0.02 Absolute Neuts (auto) 4.9 Absolute Nucleated RBC 0.000 Nucleated RBC % (auto) 0.0 Sodium 140 Potassium 4.4 Chloride 102 Carbon Dioxide 31 H Anion Gap 11 L BUN 18 H Creatinine 0.89 Estim Creat Clear Calc 42.5 Estimated GFR > 60 Random Glucose 107 Calcium 9.2 Total Bilirubin 0.3 Direct Bilirubin 0.1 AST 13 ALT 13 Alkaline Phosphatase 86 Total Protein 6.2 L Albumin 4.0 Imaging Diagnostic Imaging Impressions Head CT 10/01/22 09:58 IMPRESSION: There are scattered chronic small vessel ischemic changes within the periventricular white matter. Otherwise unremarkable examination. No evidence of acute territorial infarct or hemorrhage. Chest X-Ray 10/05/22 13:56 IMPRESSION: Bibasilar atelectasis. DS: Summary Hospital Course Hospital Course: the patient was initially admitted at the emergency room of another hospital due to exacerbation of depressive symptoms. The patient was admitted a few weeks ago another facility for the same symptoms but she decompensate. Please see the HPI of the admission note for further details. On admission, we continue the medical workout and review her medications. We kept her Risperdal 1 mg p.o. t.i.d. and Lamictal 100 mg p.o. b.i.d. as prescribed but we decided to add mirtazapine as an antidepressant since the patient has lost a lot of weight. The patient was unable to tolerate mirtazapine, she was over-sedated and nearly fall. It was a pin was discontinue and we discussed other treatment options. While she was in the unit, the patient presented with several neurovegetative symptoms such as lack of energy, poor sleep and anhedonia. We increased her Zoloft to 100-150 mg p.o. daily and we added a very low dose of amitriptyline 12.5 mg p.o. q.h.s. to help her at sleep. The patient was able to tolerate this med changes. We held several family meetings and we contact her son who was the primary caregiver. Apparently the patient recently relocated from [facility] in to [place] and she received treatment back in her home country. Also, we found out that the patient had a dependent relation with her who was the primary caregiver. The patient's mood improved, she was able to participate in groups and other therapeutic activities and since there were no suicidal ideation or any other safety concerns discharge planning was discussed. Time spent discussing smoking cessation with patient: 3 to 10 minutes Status at Discharge Cognitive/behavioral status at discharge: Impaired at baseline Functional status at discharge: uses cane/walker Overall status at discharge: patient is back to baseline Time Spent with Patient Time attestation: Total time managing care of this patient today ____ minutes. Time spent: Less than 30 minutes Discharge Plan Discharge Anticipated Discharge Date/Time: 10/16/22 11:00 Patient Disposition: Home, Self-Care Discharge Diagnosis: Bipolar disorder type 2 most recent episode depressed. Dementia early stages Referrals: [facility] [Other] - 10/17/22 (Referral for physical and occupational therapy with VNA was placed. [facility] will follow up with start time on 10/17/22. ) [facility] [Other] - 1 Week (Susie Fox will contact you regarding information related to adult day health services following discharge. Her number is [phone]. There are 3 local day programs that Susie can provide a tour of. Please call her following discharge to see programs, tour and decide if you would like to enroll.) [facility] [Other] - 1 Week (Please go to [facility] Thursday-Thursday between 9am-12pm or 1pm-4pm for walk in appointment and request Urgent Care intake for therapy and psychiatry services. Please bring discharge paperwork from [facility] as well as an ID and insurance card if you have it and request an intake appointment. Intake will be 20 minutes and you will be given psychiatry and therapy appointment within 10 days. ) [facility] [Other] - 1 Week Catherine Vega MD [Primary Care Provider] - 11/19/22 11:00 am (Pcp Appointmet with Catherine Vega. Closest appointment was November 19, They will call if anything opens up sooner.) Discharge Medications: New multivitamin [Daily-Jessica] Tablet 1 tab PO DAILY 30 Days Qty: 30 0RF sennosides [Senna Lax] 8.6 mg Tablet 8.6 mg PO BEDTIME 30 Days Qty: 30 0RF lisinopril 20 mg Tablet 20 mg PO DAILY 30 Days Qty: 30 0RF Protocol: Hold for SBP< HOLD for SBP < : 90 meclizine 12.5 mg Tablet 12.5 mg PO TID PRN (Reason: vertigo) 30 Days Qty: 60 0RF amitriptyline 25 mg Tablet 12.5 mg PO BEDTIME 30 Days Qty: 15 0RF Flovent Diskus 100 mcg/actuation Blister With Device 2 puff inhalation DAILY 30 Days Qty: 1 0RF omeprazole 20 mg Capsule,Delayed Release(Dr/Ec) 20 mg PO DAILY@0630 30 Days Qty: 30 0RF sertraline 50 mg Tablet 150 mg PO DAILY 30 Days Qty: 90 0RF Continued clonidine HCl 0.1 mg tablet 0.1 mg PO BID 30 Days Qty: 60 0RF clonazepam 0.5 mg tablet 0.5 mg PO TID 30 Days Qty: 90 0RF risperidone 1 mg tablet 1 mg PO TID 30 Days Qty: 90 0RF lamotrigine 100 mg tablet 100 mg PO BID 30 Days Qty: 60 0RF ferrous gluconate 324 mg (38 mg iron) tablet 324 mg PO DAILY 30 Days Qty: 30 0RF Discontinued diphenhydramine HCl [Banophen] 50 mg capsule 50 mg PO BEDTIME PRN (Reason: insomnia) sertraline 50 mg tablet 50 mg PO DAILY lamotrigine 100 mg tablet 100 mg PO BID Therapeutic-M 9 mg iron-400 mcg tablet 1 tab PO DAILY Discharge Orders: Discharge Order (Routine); Ordered 10/16/22 Ordered By: Louie Reeves Diet: Advance to usual diet Activity on Discharge: As tolerated Stand Alone Forms: Patient Portal Discharge page Care Plan Goals: Care plan goals achieved in this admission, resolution of suicidality. Health Concerns: Continue treatment with outpatient providers Plan of Treatment: Continue medication management by outpatient providers. Assessment: Elderly female with a long history of bipolar disorder admitted for exacerbation of depression, at this moment no evidence of suicidality able to go back to the community.
[2022-10-16] MEDS: Sertraline HCL 50 MG TABLET 150 MG PO (08:25)
[2022-10-16] MEDS: cloNIDine HCL 0.1 MG TABLET PO (08:29)
[2022-10-16] MEDS: risperiDONE 1 MG TABLET PO (08:29)
[2022-10-16] MEDS: lisinopriL 20 MG TABLET PO (08:29)
[2022-10-16] MEDS: Multivitamin TABLET 1 TAB PO (08:29)
[2022-10-16] MEDS: lamoTRIgine 100 MG TABLET PO (08:29)
[2022-10-16] MEDS: clonazePAM 0.5 MG TABLET PO (08:29)
[2022-10-16] MEDS: Fluticasone Propionate 100 MCG BLST.W.DEV 2 PUFF INHALE (08:48)
== END 2022-10-16 11:20 | disposition home or self-care (01) | DRG 753 ==
PROVIDERS: Clinical Nurse Specialist Psychiatric/Mental Health, Adult; Psychiatry & Neurology Psychiatry; Admitting Provider Psychiatry & Neurology Psychiatry; PCP Internal Medicine; Visit Provider Psychiatry & Neurology Psychiatry
DX: F31.81 Bipolar II disorder (principal); E11.9 Type 2 diabetes mellitus without complications; F03.90 Unspecified dementia, unspecified severity, without behavioral disturbance, psychotic disturbance, mood disturbance, and anxiety; H81.13 Benign paroxysmal vertigo, bilateral; R63.0 Anorexia; Z23 Encounter for immunization; Z79.51 Long term (current) use of inhaled steroids; Z79.899 Other long term (current) drug therapy
CPT/HCPCS: 36415; 70450; 71045; 80048; 80053; 80061; 80076; 82607; 82746; 82947; 83036; 83735; 84439; 84443; 85025; 90686; 97161